=== PATIENT | male | born 1965 | race Caucasian/White ===

== ENCOUNTER → 2018-09-02 | Outpatient (CLI) | payer BC ==
--- NOTE | 2018-09-02 15:07 | US ---
EXAMINATION TYPE: US kidneys/renal and bladder DATE OF EXAM: 09/02/2018 COMPARISON: CT, US, MRI CLINICAL HISTORY: R35.0 Frequency of micturition. Pt states urinary frequency EXAM MEASUREMENTS: Right Kidney: 14.1 x 5.8 x 5.7 cm Left Kidney: 13.0 x 6.5 x 5.1 cm Right Kidney: Double collecting system Left Kidney: Cyst upper pole= 7.9 x 6.8 x 7.6 cm Bladder: wnl Bilateral Jets seen: No There is no evidence for hydronephrosis at this point in time. No nephrolithiasis is seen. No solid masses are identified. The urinary bladder is anechoic. Bilateral ureteral jets are seen. IMPRESSION: 1. Large simple cyst upper pole left kidney.
== END | disposition home or self-care (01) ==
LOC: RADUSWWP 14:17
PROVIDERS: ATTEND Family Medicine
DX: N28.1 Cyst of kidney, acquired (principal)
CPT/HCPCS: 76770

== ENCOUNTER 2019-05-23 10:04 | Day surgery (SDC) | payer BC, OTHER ==
[2019-05-22 09:28] VITALS: BMI 32.5
[~2019-05-23 10:04] MED LIST: LACTATED RINGERS 1,000 ML IV SCH; LIDOCAINE 1% 20 ML VIAL (10MG/ML) FOR IV START INTRADERMA PRN
[2019-05-23 10:23] VITALS: TEMP 97
[2019-05-23] MEDS ORDERED: PROPOFOL 10 MG/ML 20 ML VIAL IV ONE (10:31)
--- NOTE | 2019-05-23 10:53 | P.PCN ---
Date of Procedure: 05/23/19 Procedure(s) Performed: BRIEF HISTORY: Patient is a 54-year-old pleasant male scheduled for an elective colonoscopy as a part of screening for colorectal neoplasia. PROCEDURE PERFORMED: Colonoscopy. PREOPERATIVE DIAGNOSIS: Screening for colon cancer. IV sedation per Anesthesia. PROCEDURE: After informed consent was obtained, the patient, was brought into the endoscopy unit. IV sedation was administered by Anesthesia under continuous monitoring. Digital rectal examination was normal. Initially the Olympus CF-160 flexible video colonoscope was then inserted in the rectum, gradually advanced into the cecum without any difficulty. Careful examination was performed as the scope was gradually being withdrawn. Ileocecal valve and the appendiceal orifice were visualized and appeared normal. Prep was fair. Mucosa of the cecum, ascending colon, transverse colon, descending colon, sigmoid colon, and rectum appeared normal. In the mid rectum there was a 3 mm sessile polyp that was removed by cold biopsy. Retroflexion was performed in the rectum and no lesions were seen. The patient tolerated the procedure well. IMPRESSION: 3 mm sessile rectal polyp status post removal by cold biopsy Rest of the colon appeared normal RECOMMENDATIONS: Findings of this examination were discussed with the patient as well as his family. He was advised to follow with the biopsy results. If the biopsy shows an adenoma, he can have a repeat colonoscopy in 5 years.
[2019-05-23 11:11] VITALS: BP 139/81; PULSE 64; RESP 18
== END 2019-05-23 11:32 | disposition home or self-care (01) ==
LOC: ORWHC2ENDO 10:04
PROVIDERS: ATTEND Internal Medicine Gastroenterology
DX: Z12.11 Encounter for screening for malignant neoplasm of colon (principal); K62.1 Rectal polyp; Z79.82 Long term (current) use of aspirin; Z79.1 Long term (current) use of non-steroidal anti-inflammatories (NSAID)
CPT/HCPCS: 45380; 88305; J2704

== ENCOUNTER → 2019-06-26 | Outpatient (CLI) | payer BC, OTHER ==
--- NOTE | 2019-06-26 23:50 | CONS ---
CONSULTATION DATE OF SERVICE: 06/26/2019 This patient is a 54-year-old gentleman who has been evaluated in the sleep center for possible obstructive sleep apnea-hypopnea syndrome. HISTORY OF PRESENT ILLNESS/SLEEP-WAKE EVALUATION: Patient's usual sleep schedule is from around 10 or 11 p.m. until 6 or 6:20 a.m. No problems with falling asleep. No TV in bedroom. The patient usually sleeps in different positions with loud snoring and witnessed episodes by his of stopped breathing during sleep. He wakes up from sleep up to 4 times with nocturia and dry mouth. No history of hypnagogic hallucinations, sleep paralysis or cataplexy. In the morning the patient wakes up tired, has difficulties paying attention, falling asleep during the day, has problems with concentration, depression, sexual dysfunction. [place] Sleepiness Scale is significantly increased at 18. The patient takes a nap between 2 and 5 p.m. and usually feels better after taking a nap. He drinks about 3 caffeinated beverages during the day. PAST MEDICAL HISTORY: Positive for nocturia. PAST SURGICAL HISTORY: Exploratory surgery in right side of the belly for some growth in 2018. MEDICATIONS: 1. Tamsulosin. 2. Baby aspirin. SOCIAL HISTORY: Positive for smoking for a very short period of time for about 2 years; quit about 35 years ago. Alcohol consumption occasional. FAMILY HISTORY: Arthritis. Cancer; patient does not know location. REVIEW OF SYSTEMS: Awakenings from sleep, sleepiness during the day. PHYSICAL EXAMINATION: GENERAL: A pleasant 54-year-old gentleman without distress. VITAL SIGNS: BP 154/81, HR 92, RR 16, height 6 feet 2-1/2 inches, weight 280 pounds, body mass index 35.4, temperature 97.9, oxygen saturation at room air 95%. HEENT: PERRLA, EOMI. Evaluation of oropharynx showed tongue protrudes midline. Low position of soft palate. Mallampati IV. Some restriction of nasal breathing. NECK: Supple. No JVD. Thyroid is not palpable. Wide neck; 18-3/4 inches in circumference. LUNGS: Clear to percussion and to auscultation. Good air exchange. No wheezing or rhonchi. HEART: S1, S2 regular. No murmurs, gallops or rubs. ABDOMEN: Soft and nontender. Bowel sounds are present. No organomegaly. EXTREMITIES: Up to 1+ ankle edema. RADIAL SAW OPERATOR: Awake, alert, and oriented X3. Cranial nerves 2 to 7 intact. There is no fasciculation or atrophy. noted. No focal deficits observed. IMPRESSION: 1. Snoring, witnessed episodes by his of stopped breathing during sleep, awakenings from sleep multiple times with nocturia, extremely low position of soft palate, restriction of nasal breathing, wide neck, excessive sleepiness; obstructive sleep apnea-hypopnea syndrome. 2. Significant excessive daytime sleepiness. [place] Sleepiness Scale increased at 18, dictating necessity to include hypersomnia in differential diagnosis. 3. Obesity; body mass index 35.4. 4. Hypertension in the office. 5. Status post right side of the belly exploratory surgery for some growth. PLAN: 1. Polysomnography for evaluation of patient's breathing during sleep. 2. CPAP/BiPAP titration if sleep study confirms obstructive sleep apnea-hypopnea syndrome. 3. Preferable position during sleep on the side. 4. No driving if patient feels any sleepiness. 5. I will see patient for follow up visit to explain results of testing and following plan. Thank you very much for referring this patient for consultation. Sincerely, Tobias Avendano MD, PhD, FAASM Diplomat of [employer] [employer] [employer] Insulation Cupola Operator of [facility] [place] MMODL / IJN: [id number] /
== END | disposition home or self-care (01) ==
LOC: SLEEP 15:55
PROVIDERS: ATTEND Internal Medicine
DX: G47.33 Obstructive sleep apnea (adult) (pediatric) (principal); E66.9 Obesity, unspecified; I10 Essential (primary) hypertension; Z68.35 Body mass index [BMI] 35.0-35.9, adult; Z87.891 Personal history of nicotine dependence; Z98.890 Other specified postprocedural states; Z79.82 Long term (current) use of aspirin; Z79.899 Other long term (current) drug therapy
CPT/HCPCS: 99211

== ENCOUNTER → 2019-12-25 | Outpatient (CLI) | payer SELFPAY ==
--- NOTE | 2019-12-25 13:00 | SFUN ---
SLEEP CENTER FOLLOW UP NOTE DATE OF SERVICE: 12/25/2019 A 54-year-old gentleman has been followed in Sleep Center for treatment of obstructive sleep apnea-hypopnea syndrome. Today is his first visit after patient received CPAP unit and started to use it. The patient is able to use CPAP equipment every night for the whole night. He sleeps better with the machine. He feels better during the day. No snoring with the machine. [place] Sleepiness Scale today is 9. I checked CPAP unit. CPAP pressure is 9 cm of water. Usage is 29 out of 30 nights for more than 4 hours with average usage 6.3 hours per night. Leak is 26 L/minute which is borderline. Apnea-hypopnea index only 1.0, which is absolutely perfect. Leak could be related to opening mouth. MEDICATIONS: Tamsulosin, aspirin. PHYSICAL EXAMINATION: During physical exam, patient in no distress. VITAL SIGNS: BP 161/92, HR 66, RR 16, weight 285.8, temperature 97.6, oxygen saturation on room air 96%. HEENT: PERRLA, EOMI. Oropharynx extremely low position of soft palate. Mallampati 4. NECK: Supple, no JVD. Thyroid is not palpable. LUNGS: Clear to percussion and to auscultation. Good air exchange. No wheezing or rhonchi. HEART: S1, S2 regular. No murmurs, gallops, or rubs. ABDOMEN: Obese. EXTREMITIES: No clubbing or cyanosis. FARM TECHNICIAN: Awake, alert, and oriented X3. Cranial nerves 2 to 7 intact. There is no fasciculation or atrophy. noted. No focal deficits observed. IMPRESSION: 1. Severe obstructive sleep apnea-hypopnea syndrome; apnea-hypopnea index 56.3 with oxygen desaturation to 70%. The patient demonstrated practically 100% compliance with treatment benefitting from treatment, normal respiration with CPAP. 2. Obesity. 3. Hypertension in the office already second time. 4. Mild periodic limb movements during titration. 5. Status post exploratory surgery of the right side of the belly for the growth. PLAN: 1. Patient will continue to use CPAP equipment every night for the whole night. 2. Watching and losing weight. 3. Sleep hygiene with regular time in bed for 7-1/2 to 8 hours. 4. No driving if feeling any sleepiness. 5. Prescription for chin strap to prevent opening mouth. Thank you very much for allowing me to participate in management of your patient. Sincerely, Tobias Avendano MD, PhD, FAASM Diplomat of [place] [employer] Rubbing Bed Operator of [facility] [place] HUGO / JOSE R: [id number] /
== END | disposition home or self-care (01) ==
LOC: SLEEP 11:17
PROVIDERS: ATTEND Internal Medicine
DX: G47.33 Obstructive sleep apnea (adult) (pediatric) (principal); E66.9 Obesity, unspecified; I10 Essential (primary) hypertension; G47.61 Periodic limb movement disorder; Z98.890 Other specified postprocedural states; Z99.89 Dependence on other enabling machines and devices; Z79.899 Other long term (current) drug therapy; Z79.82 Long term (current) use of aspirin

== ENCOUNTER → 2021-03-02 | Outpatient (CLI) | payer OTHER ==
--- NOTE | 2021-03-02 19:35 | SFUN ---
SLEEP CENTER FOLLOW UP NOTE DATE OF SERVICE: 03/02/2021 This is a 55-year-old gentleman who has been followed in the sleep enter for treatment of obstructive sleep apnea-hypopnea syndrome. The patient continues to use his CPAP equipment every night for the whole night. He likes his mask. He is using a nasal pillow AirFit P10. [place] Sleepiness Scale has increased to 13. I checked his CPAP unit. CPAP pressure is 10 cm of water. Usage is 29/30 nights and 22/30 nights for more than 4 hours, average usage 4.9 hours per night. Leak is 28 L/minute. Apnea-hypopnea index was only 1.0, which is absolutely perfect. MEDICATIONS: Motrin, aspirin 81 mg once a day. PHYSICAL EXAMINATION: GENERAL: A pleasant gentleman without distress. VITAL SIGNS: BP 161/90, HR 88, RR 15. Height 6 feet 2-1/2 inches, weight 295.8 pounds, temperature 97.9, oxygen saturation at room air 98%. Body mass index 37.4. HEENT: PERRLA, EOMI. Evaluation of oropharynx showed tongue protrudes midline. Extremely low position of soft palate. Mallampati IV. NECK: Supple. No JVD. Thyroid is not palpable. LUNGS: Clear to percussion and to auscultation. Good air exchange. No wheezing or rhonchi. HEART: S1, S2 regular. No murmurs, gallops or rubs. ABDOMEN: Soft and nontender. Bowel sounds are present. No organomegaly appreciated. EXTREMITIES: No clubbing or cyanosis. HORTICULTURE SUPERVISOR: Awake, alert, and oriented X3. Cranial nerves 2 to 7 intact. There is no fasciculation or atrophy. noted. No focal deficits observed. IMPRESSION: 1. Obstructive sleep apnea-hypopnea syndrome. Patient demonstrated great compliance with treatment, benefitting from treatment. 2. Patient still has some episodes of sleepiness. [place] Sleepiness Scale is 13. Originally during the first visit before treatment of sleep apnea it was 18. 3. Obesity. 4. Hypertension in the office. 5. Status post right side of the belly exploration surgery for growth. PLAN: 1. Patient will continue to use PAP equipment every night for the whole night. 2. Sleep hygiene with regular time in bed for at least 7-1/2 to 8 hours. 3. Precautions related to driving. No driving if feeling sleepiness. 4. I will maintain all necessary prescription for PAP supplies including mask, tube, filters. 5. Watching weight. 6. Follow-up visit in 6 months or earlier if patient has any problems. 7. I had an extensive discussion with the patient about the necessity of monitoring blood pressure and follow with a primary care physician. 8. Low-sodium diet. 9. I wrote a prescription today for his supplies, including nasal pillow mask, tube, filters. Sincerely, Tobias Avendano MD, PhD, FAASM Diplomat of [place] [employer] [place] [employer] Special Agent of [facility] [place] MMODL / IJN: [id number] /
== END ==
LOC: SLEEP 14:28
PROVIDERS: ATTEND Internal Medicine
DX: G47.33 Obstructive sleep apnea (adult) (pediatric) (principal); E66.9 Obesity, unspecified; I10 Essential (primary) hypertension; Z98.890 Other specified postprocedural states

== ENCOUNTER → 2021-04-21 | Outpatient (CLI) | payer OTHER ==
--- NOTE | 2021-04-21 12:34 | ECHOF ---
Referral Reason:R06.02 Shortness of breath MEASUREMENTS -------- HEIGHT: 160.0 cm WEIGHT: 127.0 kg BP: RVIDd: 2.9 cm (< 3.3) IVSd: 1.3 cm (0.6 - 1.1) LVIDd: 4.3 cm (3.9 - 5.3) LVPWd: 1.2 cm (0.6 - 1.1) IVSs: 2.1 cm LVIDs: 1.9 cm LVPWs: 2.0 cm LAESV Index (A-L): 17.67 ml/m Ao Diam: 3.5 cm (2.0 - 3.7) AV Cusp: 2.4 cm (1.5 - 2.6) LA Diam: 4.1 cm (2.7 - 3.8) MV EXCURSION: 16.541 mm (> 18.000) MV EF SLOPE: 123 mm/s (70 - 150) EPSS: 0.6 cm MV E Israel: 0.57 m/s MV DecT: 192 ms MV A Israel: 0.62 m/s MV E/A Ratio: 0.92 RAP: 5.00 mmHg RVSP: 27.11 mmHg FINDINGS -------- This was a technically adequate study. The left ventricular size is normal. There is mild concentric left ventricular hypertrophy. Overa ll left ventricular systolic function is normal with, an EF between 55 - 60 %. The diastolic fillin g pattern is normal for the age of the patient 8.78. The right ventricle is normal in size. The left atrial size is normal. Normal LA size by volume 22+/-6 ml/m2. The right atrial size is normal. The aortic valve is trileaflet and appears structurally normal. The mitral valve is normal. Mild mitral regurgitation is present. The tricuspid valve appears structurally normal. Mild tricuspid regurgitation present. Right vent ricular systolic pressure is normal at < 35 mmHg. There is no pulmonic regurgitation present. The aortic root size is normal. IVC Not well visulized. There is no pericardial effusion. CONCLUSIONS -------- 1. The left ventricular size is normal. 2. There is mild concentric left ventricular hypertrophy. 3. Overall left ventricular systolic function is normal with, an EF between 55 - 60 %. 4. The diastolic filling pattern is normal for the age of the patient 8.78 5. Mild mitral regurgitation is present. 6. Mild tricuspid regurgitation present. 7. There is no pericardial effusion. ANDROID DEVELOPER: Pinky Braden RDCS
== END | disposition home or self-care (01) ==
LOC: RADECHMAIN 10:44
PROVIDERS: ATTEND Family Medicine
DX: I08.1 Rheumatic disorders of both mitral and tricuspid valves (principal)
CPT/HCPCS: 93306

== ENCOUNTER → 2023-03-23 | Outpatient (CLI) | payer OTHER ==
--- NOTE | 2023-03-27 05:42 | CT ---
EXAMINATION TYPE: CT abdomen wo/w con DATE OF EXAM: 03/23/2023 COMPARISON: 01/17/2016 HISTORY: 57-year-old male N2 8.1, Renal mass TECHNIQUE: Contiguous axial scanning of the abdomen before and after administration of 100 ml Isovue 300 IV contrast. Delayed images through the kidneys and coronal/sagittal reconstructions performed. CT DLP: 2390.50 mGycm Automated exposure control for dose reduction was used. FINDINGS: Heart upper limits of normal in size without pericardial effusion. Some dependent atelectas is in the lower lungs. No pleural effusion. Hepatomegaly at 21.8 cm. No focal liver lesion or biliary ductal dilatation. Portal venous system is patent. Gallbladder and adrenal glands within normal limits. Spleen mildly enlarged at 14.1 cm. There is a 1.0 cm hypodense lesion anterior tail of the pancreas, axial image 31, not clearly seen pr eviously. This should be reassessed at a 3 month follow-up CT. Symmetric uptake and excretion of contrast from both kidneys. There is a 2.4 cm parapelvic cyst mid t o lower pole right kidney. There is also a 2.9 cm cyst anterior upper midpole left kidney which has c onsiderably decreased in size compared to 6.3 cm back in 2016. No dilated small bowel, free fluid, or free air. No mesenteric or retroperitoneal lymphadenopathy. Small fatty umbilical hernia. Mild overall stool burden. No pericolonic inflammatory change. [facility] in the lower thoracic spine. Moderate to advanced degenerative disc disease throughout the lumba r spine. Pelvis not imaged. IMPRESSION: 1. BENIGN PARAPELVIC CYST WITHIN THE RIGHT KIDNEY MEASURING 2.4 CM AND A BENIGN 2.9 CM CYST ANTERIOR LEFT KIDNEY, CONSIDERABLY DECREASED IN SIZE COMPARED TO 6.3 CM BACK IN 2016. 2. A NEW LOW-DENSITY LESION WITHIN THE ANTERIOR TAIL OF THE PANCREAS MEASURING 1.0 CM. NOT SEEN IN 20 16. RECOMMEND 3 MONTH FOLLOW-UP CONTRAST ENHANCED CT TO EXCLUDE AN EARLY PANCREATIC CARCINOMA. IF STA BLE AT THAT TIME, ADDITIONAL SURVEILLANCE FOLLOW-UP MAY BE INDICATED. IN THE MEANTIME, CORRELATE WITH TUMOR MARKERS. 3. HEPATOSPLENOMEGALY (LIVER 21.8 CM AND SPLEEN 14.1 CM). CLINICALLY CORRELATE.
== END | disposition home or self-care (01) ==
LOC: RADCTMAIN 12:06
PROVIDERS: ATTEND Emergency Medicine Emergency Medical Services
DX: N28.1 Cyst of kidney, acquired (principal); K86.89 Other specified diseases of pancreas; R16.2 Hepatomegaly with splenomegaly, not elsewhere classified
CPT/HCPCS: 74170; Q9967

== ENCOUNTER → 2023-04-02 | Outpatient (CLI) | payer OTHER ==
[2023-04-02 10:07] VITALS: BP 118/77; PULSE 61; RESP 18; TEMP 97.6
--- NOTE | 2023-04-05 07:41 | P.PAINPG ---
PQRS Measure Charge Sheet Comment: HISTORY OF PRESENT ILLNESS: 57 yr old as a referral from [facility] presents today w severe and chronic LBP secondary to DDD, spondylosis and facet arthropathy without myelopathy for evaluation. Pt states pain level is provoked at 8 /10 in intensity, constant, localized in the lower lumbar spine, burning, sharp in character w shooting pain towards the BLEs. Pain is provoked by walking and over activity x 30 min. Pain is alleviated by PT x 5 wks in Nov 2022, chiropractic treatments semi monthly x 1 1/2 mo, ice, medications (Tramadol, Ibu), topical, repositioning, sitting and rest. PMH: No Reported History PSH: Colonoscopy (2019), Laparoscopic Hernia Repair (2016), Bunionectomy, Finger Surgery SH: Negative x3 FH: Non contributory All: NKDA Meds: See list REVIEW OF ORGAN SYSTEMS: CONSTITUTIONAL: No fevers or chills. No recent weight loss. NEUROLOGICAL: + numbness and tingling along the distal extremities. No seizure disorders or headaches. MUSCULOSKELETAL: + pain PSYCHIATRIC: Denies current depression or suicidal thoughts. Physical Examinations : Constitutional : Cooperative , not in acute distress . Neurologic : Cranial nerve II to XII intact. No focal neurological deficits. Psychiatric : alert & oriented x 3. Matching mood & appropriate affect. Judgment & insight intact. Musculoskeletal : Cervical Spine Motor strength in the deltoid and biceps: Normal right side. Normal Left side Motor strength biceps and the wrist extensors: Normal right side . Normal left side Motor strength in the triceps muscle: Normal right side. Normal left side Deep tendon reflexes: Normal at the biceps. Normal at Brachioradialis. Normal at triceps Vertebral body tenderness to deep palpation over Cervical facet loading test: positive bilaterally Spurling test: positive bilaterally Neck distraction test: positive merlene aterally Florinda sign: positive bilaterally Lumbar spine Motor strength lower extremities ,thigh and legs 5/5 Right side , 5/5 Left side Deep tendon reflexes : Normal Knee Jerk. Normal Ankle Jerk Vertebral body tenderness over Maciel Test positive Lumbar facet Loading Test: positive Right / positive Left Range of motion of the lumbar spine Flexion 30 degrees, extension 10 degrees Straight Leg Raise test: Left/ Right positive at degree Marcelina test: positive right / positive left. Severe tenderness over the Sacroiliac joint on the Right / Left sides Gaenslen test: positive bilaterally Seated flexion test: positive bilaterally. Sacral spine : Severe tenderness over the Sacroiliac joint: right side / left side Range of motion: Flexion of the lumbar spine <60 degrees Range of motion: Extension of the lumbar spine <20 degrees Gaenslen's Test positive Tejas's Test positive Marcelina test: positive right side / left side Thigh Thrust Test Sacral Thrust Test Imaging: None on file Assessment/ Plan : Lumbar DDD Need imaging of which pt states MRIs have been complete while a [facility]. Request sent. May return to clinic within 2-4 wks for a re evaluation. I have spent greater than 30 minutes on patient care today. Dr Calderon was available by phone for the evaluation of this patient. The time was used to review the medical records including relevant urine studies and Prescription history (MAPs), review of the available imaging, evaluation and examination of the patient, coordination of care with the medical staff and if applicable referring physicians, as well as creation of the medical record PQRS Narrative: Smoking Status Never smoker Home Medications: Ambulatory Orders Aspirin 81 mg PO DAILY 01/17/16 Multivitamin [Men's Multi-Vitamin] 1 tab PO DAILY 01/17/16 Ibuprofen [Motrin] 800 mg PO DAILY PRN 02/04/16 Tamsulosin [Flomax] 0.4 mg PO DAILY 05/23/19 Controlled Substance Measures - Controlled Substance Measures Is patient prescribed a controlled substance at discharge?: No
== END ==
LOC: PNWHC3 08:48
PROVIDERS: ATTEND Specialist
DX: M51.36 Other intervertebral disc degeneration, lumbar region (principal)
CPT/HCPCS: 99211

== ENCOUNTER → 2023-04-23 | Outpatient (CLI) | payer OTHER ==
[2023-04-23 10:07] VITALS: BP 118/73; PULSE 56; RESP 18; TEMP 98.3
--- NOTE | 2023-04-23 14:20 | P.PAINPG ---
PQRS Measure Charge Sheet Comment: A 58 yr old male with a history of severe and chronic LBP secondary to lumbar DDD and spondylosis with facet arthropathy without myelopathy presents today for LBP. Pt states pain level is provoked at 8 /10 in intensity, constant, localized in the lower lumbar spine, burning, sharp in character w shooting pain towards the BL hips. Pain is provoked by walking and over activity x 30 min. Pain is alleviated by PT x 5 wks in Nov 2022, chiropractic treatments semi monthly x 1 1/2 mo, ice, medications (Tramadol, Ibu), topical, repositioning and sitting all with minimal relief. Patient is currently on Ibu, Tyl Patient denies any side effects of the medication(s), denies excessive drowsiness or sleepiness, denies suicidal ideation and reports that the current pain medication is helping to control the pain and improve activities of daily living. Patient denies any motor or sensory deficits. Patient denies any fever or night sweats, denies any change in the bowel movements or urination. Physical Examination: -Constitutional: Cooperative. Not in acute distress . - Neurologic: Cranial nerve II to XII intact. No focal neurological deficits. - Psychatric: Alert & oriented x 3. Matching mood & appropriate affect. Judgment and insight intact. - Musculoskeletal: Cervical spine: Muscle bulk/ tone/ strength in the bilateral upper extremities normal Vertebral body tenderness to palpation over Spurling test positive Distraction test positive Facet loading test positive TTP Thoracic spine Muscle bulk / tone/ strength in the bilateral paraspinal muscles normal Vertebral body tender to palpation over Facet loading test positive TTP Lumbar spine: Motor bulk/ tone/ strength lower extremities , thigh and legs : 5/5 Deep tendon reflexes : Normal Knee Jerk. Normal Ankle Jerk . Vertebral body tenderness to palpation over L2 Maciel Test positive Lumbar Facet Loading Test positive Straight Leg Raise: positive at 30 degrees right side/ left side Gaenslen's Test positive Sacral spine : Severe tenderness over the Sacroiliac joint: right side / left side Range of motion: Flexion of the lumbar spine <60 degrees Range of motion: Extension of the lumbar spine <20 degrees Gaenslen's Test positive right side / left side Marcelina test: positive right side / left side Thigh Thrust Test positive right side / left side Sacral Thrust Test positive right side / left side Imaging: MRI noncontrast of BL hips from 06/28/22 reviewed MRI noncontrast of lumbar spine from 06/28/22 reviewed Assessment and plan: Chronic LBP secondary to lumbar DDD, spondylosis with facet arthropathy without myelopathy Recommendation of REBEL L1-L2. May need a series fo injections for optimal pain relief. Risks, benefits of procedure discussed and pt verbalized understanding. Admits to anticoagulant use or medical history of diabetes. Protocol for discontinuation/ continuation of medications brianne procedure discussed. Minimal anesthesia provided, if clinically indicated, consisting of Versed and Fentanyl. All questions answered. I have spent less than 30 minutes on patient care today. Dr Calderon was available by phone for the evaluation of this patient. The time was used to review the medical records including relevant urine studies and Prescription history (MAPs), review of the available imaging, evaluation and examination of the patient, coordination of care with the medical staff and if applicable referring physicians, as well as creation of the medical record PQRS Narrative: Smoking Status Never smoker Hx Alcohol Use (MH) No Home Medications: Ambulatory Orders Aspirin 81 mg PO DAILY 01/17/16 Multivitamin [Men's Multi-Vitamin] 1 tab PO DAILY 01/17/16 Ibuprofen [Motrin] 800 mg PO DAILY PRN 02/04/16 Tamsulosin [Flomax] 0.4 mg PO DAILY 05/23/19 Controlled Substance Measures - Controlled Substance Measures Is patient prescribed a controlled substance at discharge?: No
== END ==
LOC: PNWHC3 08:16
PROVIDERS: ATTEND Specialist
DX: M51.36 Other intervertebral disc degeneration, lumbar region (principal); M47.816 Spondylosis without myelopathy or radiculopathy, lumbar region; G89.29 Other chronic pain; Z79.82 Long term (current) use of aspirin
CPT/HCPCS: 99211

== ENCOUNTER 2023-05-29 08:17 | Day surgery (SDC) | payer OTHER ==
[2023-05-10 14:51] VITALS: BMI 32.1
[~2023-05-29 08:17] MED LIST changes: -LIDOCAINE 1% 20 ML VIAL (10MG/ML) FOR IV START INTRADERMA PRN
[2023-05-29 08:34] VITALS: TEMP 96.4
[2023-05-29] MEDS ORDERED: methylPREDNISolone ACETATE 80 MG/ML 1 ML VIAL ONE (08:48)
[2023-05-29] MEDS ORDERED: IOPAMIDOL M200 10 ML VIAL ONE (08:48)
[2023-05-29 09:02] VITALS: PULSE 55; RESP 18
[2023-05-29 09:15] VITALS: BP 143/87
--- NOTE | 2023-05-29 09:22 | P.PCN ---
Date of Procedure: 05/29/23 Procedure(s) Performed: PREOPERATIVE DIAGNOSIS: 1- Lumbar Degenerative Disc Diseases 2-Lumbar spondylosis with Facet arthropathy without myelopathy. POSTOPERATIVE DIAGNOSIS: 1-lumbar degenerative disc disease. 2-lumbar spondylosis with facet arthropathy without myelopathy. PROCEDURE 1. Lumbar epidural steroid injection under fluoroscopic guidance at the L1-2 level. (Fluoroscopy imaging was available in radiology department) 2. Lumbar epidurogram. ANESTHESIA: Lidocaine 1% 3 and then only. EBL: Minimal PROCEDURE INDICATION: The patient with low back pain and radiculitis symptoms unresponsive to conservative treatment. Fluoroscopy was used to optimize visualization of the needle placement and to maximize safety. PROCEDURE DESCRIPTION / TECHNIQUE: The patient was seen and identified in the preoperative area. Risks, benefits, complications including but not limited to infections ,bleeding ,allergic reaction to the medications ,nerve damage and not complete pain releife , and alternatives were discussed with the patient. The patient agreed to proceed with the procedure and signed the consent, and vital signs were stable. Patient was taken to the OR and time out was completed. The patient was placed in the prone position on procedure table and a pillow was placed under the abdomen to reduce lumbar lordosis. The lumbosacral area was prepped and draped in the usual sterile fashion.ere closely monitored during the procedure. Vital signs was monitered during the entire procedure. Using anterior-posterior fluoroscopy, the L1-2 interlaminar space was identified and the skin over this site was marked and then infiltrated with 1% lidocaine subcutaneously. Subsequently, a 20-gauge Tuohy epidural needle was inserted and advanced toward the epidural space using the ``Loss of resistance technique and guided by AP and lateral fluoroscopy. The correct needle position in the epidural space was verified with the injection of 2 mL of the water soluble contrast dye Isovue 200 contrast and observing an excellent epidurogram with the epidural spread of the dye, after negative aspiration for blood and CSF and in the absence of paresthesias. Again after negative aspiration, a 6 ml mixture containing 80 mg of Depo-medrol ( Preservetive Free ), and 2 ml of preservative free Normal Saline, and 2 ml of preservative free lidocaine 1% solution was injected and a washout of epidurogram was seen. Needle was withdrawn intact, skin was cleansed, and bandages were applied. COMPLICATIONS: None DISPOSITION / PLANS: The patient was placed in a supine position and transferred to the recovery area in a stable condition for observation. There was no evidence of lower extremity motor or sensory deficit after the procedure. Patient was discharged from the recovery room after meeting discharge criteria. Home discharge instructions were given to the patient by the staff. The patient was reexamined prior to discharge. The patient will schedule a follow up in the clinic in 2-4 weeks.
--- NOTE | 2023-05-29 17:13 | FL ---
EXAMINATION TYPE: FL guided pain mgmt statistic DATE OF EXAM: 05/29/2023 FLUOROSCOPY Fluoroscopy time of 2 seconds was used during lumbar epidural steroid injection. Image/s document/s t he procedure. DOSE AREA PRODUCT (DAP) UGY*M,MGY*CM: 0.70050
== END 2023-05-29 09:18 | disposition home or self-care (01) ==
LOC: ORPAIN 08:17
PROVIDERS: ATTEND Specialist
DX: M51.16 Intervertebral disc disorders with radiculopathy, lumbar region (principal); M47.26 Other spondylosis with radiculopathy, lumbar region; Z79.82 Long term (current) use of aspirin
CPT/HCPCS: 62323; J1040; Q9966

== ENCOUNTER → 2023-06-21 | Outpatient (CLI) | payer OTHER ==
[2023-06-21 08:41] VITALS: BP 127/74; PULSE 58; RESP 15; TEMP 97.2
--- NOTE | 2023-06-21 13:09 | P.PAINPG ---
PQRS Measure Charge Sheet Comment: A 58 yr old male with a history of severe and chronic LBP secondary to lumbar DDD and spondylosis with facet arthropathy without myelopathy presents today for evaluation s/p REBEL L1-L2 #1. Pt states he experienced 75% pain relief x 2 wks s/p procedure. Pt states pain level is provoked at 7 /10 in intensity, constant, localized in the lower lumbar spine, burning, sharp in character w shooting pain towards the BL hips. Pain is provoked by walking and over activity x 30 min. Pain is alleviated by PT x 5 wks in Nov 2022, chiropractic treatments semi monthly x 3 mo which he is currently in, ice, medications (Tramadol, Ibu), topical, repositioning and sitting all with minimal relief. Oswestry axial pain score of 21. Interventional procedures include REBEL L1-L2 x1 Patient is currently on Ibu, Tyl Patient denies any side effects of the medication(s), denies excessive drowsiness or sleepiness, denies suicidal ideation and reports that the current pain medication is helping to control the pain and improve activities of daily living. Patient denies any motor or sensory deficits. Patient denies any fever or night sweats, denies any change in the bowel movements or urination. Physical Examination: -Constitutional: Cooperative. Not in acute distress . - Neurologic: Cranial nerve II to XII intact. No focal neurological deficits. - Psychatric: Alert & oriented x 3. Matching mood & appropriate affect. Judgment and insight intact. - Musculoskeletal: Cervical spine: Muscle bulk/ tone/ strength in the bilateral upper extremities normal Vertebral body tenderness to palpation over Spurling test positive Distraction test positive Facet loading test positive TTP Thoracic spine Muscle bulk / tone/ strength in the bilateral paraspinal muscles normal Vertebral body tender to palpation over Facet loading test positive TTP Lumbar spine: Motor bulk/ tone/ strength lower extremities , thigh and legs : 5/5 Deep tendon reflexes : Normal Knee Jerk. Normal Ankle Jerk . Vertebral body tenderness to palpation over L2 Maciel Test positive Lumbar Facet Loading Test positive Straight Leg Raise: positive at 30 degrees right side/ left side Gaenslen's Test positive Sacral spine : Severe tenderness over the Sacroiliac joint: right side / left side Range of motion: Flexion of the lumbar spine <60 degrees Range of motion: Extension of the lumbar spine <20 degrees Gaenslen's Test positive right side / left side Marcelina test: positive right side / left side Thigh Thrust Test positive right side / left side Sacral Thrust Test positive right side / left side Imaging: MRI noncontrast of BL hips from 06/28/22 reviewed MRI noncontrast of lumbar spine from 06/28/22 reviewed Assessment and plan: Chronic LBP secondary to lumbar DDD, spondylosis with facet arthropathy without myelopathy Recommendation of REBEL L1-L2 #2. May need a series of injections for optimal pain relief. Risks, benefits of procedure discussed and pt verbalized understanding. Admits to anticoagulant use or medical history of diabetes. Protocol for discontinuation/ continuation of medications brianne procedure dis cussed. Minimal anesthesia provided, if clinically indicated, consisting of Versed and Fentanyl. All questions answered. I have spent less than 30 minutes on patient care today. Dr Calderon was avail able by phone for the evaluation of this patient. The time was used to review the medical records including relevant urine studies and Prescription history (MAPs), review of the available imaging, evaluation and examination of the patient, coordination of care with the medical staff and if applicable referring physicians, as well as creation of the medical record PQRS Narrative: Smoking Status Never smoker Hx Alcohol Use (MH) No Home Medications: Ambulatory Orders Aspirin 81 mg PO DAILY 01/17/16 Multivitamin [Men's Multi-Vitamin] 1 tab PO DAILY 01/17/16 Ibuprofen [Motrin] 800 mg PO DAILY PRN 02/04/16 Tamsulosin [Flomax] 0.4 mg PO DIRECTED 05/23/19 Controlled Substance Measures - Controlled Substance Measures Is patient prescribed a controlled substance at discharge?: No
== END ==
LOC: PNWHC3 08:14
PROVIDERS: ATTEND Specialist
DX: M51.36 Other intervertebral disc degeneration, lumbar region (principal); M47.816 Spondylosis without myelopathy or radiculopathy, lumbar region; G89.29 Other chronic pain; Z79.82 Long term (current) use of aspirin; Z88.8 Allergy status to other drugs, medicaments and biological substances
CPT/HCPCS: 99211

== ENCOUNTER → 2023-06-28 | Outpatient (CLI) | payer OTHER ==
--- NOTE | 2023-06-28 11:36 | CT ---
EXAMINATION TYPE: CT abdomen w con CT DLP: 2.8 mGycm, Automated exposure control for dose reduction was used. DATE OF EXAM: 06/28/2023 11:10 AM COMPARISON: CT abdomen pelvis most recent from 03/23/2023 CLINICAL INDICATION:Male, 58 years old with history of R93.5 ABN FINDINGS ON DX IMAGING OF ABD REGION S, I; abnormal findings of pancreas, renal cysts TECHNIQUE: Axial CT of the abdomen and pelvis. Sagittal and coronal reformats were created on a [employer] workstation. Contrast used:100 mL of Isovue 370 with IV Contrast, (none if empty) Oral contrast used: with Oral Contrast (none if empty) FINDINGS: LOWER CHEST: Unremarkable ABDOMEN LIVER: Diffusely hypoattenuating parenchyma. GALLBLADDER AND BILE DUCTS: Unremarkable. PANCREAS: Pancreatic tail cystic lesion measuring 12 mm is unchanged from 03/23/2023. There is no inte rnal enhancement there may be a small septation series 6 image 59. SPLEEN: Unremarkable. ADRENAL GLANDS: Unremarkable. KIDNEYS AND URETERS: No evidence of hydronephrosis or renal calculus. The ureters are unremarkable. B ilateral peripelvic renal cysts. Delayed imaging demonstrates no evidence for obstruction or contrast within the cyst. Postcontrast imaging consistent suspicious mass. PELVIS BLADDER: Unremarkable REPRODUCTIVE: Unremarkable. ABDOMEN & PELVIS STOMACH AND BOWEL: No evidence of bowel obstruction. PERITONEUM/RETROPERITONEUM: No evidence of pneumoperitoneum or free fluid. VASCULATURE: No evidence of aortic aneurysm. MUSCULOSKELETAL: No acute osseous abnormalities LYMPH NODES: No gross evidence for lymphadenopathy. SOFT TISSUE/ABDOMINAL WALL: Unremarkable IMPRESSION: 1. Bilateral peripelvic in renal cortical cysts.. No suspicious mass. No obstructive uropathy or tamiko al calculi. 2. 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 Attention on follow-up MRI with MRCP pancreatic mass protocol in 1 year. To ensure stability. 3. Hepatic steatosis.
== END | disposition home or self-care (01) ==
LOC: RADCTMAIN 09:56
PROVIDERS: ATTEND Social Worker Clinical
DX: K76.0 Fatty (change of) liver, not elsewhere classified (principal); N28.1 Cyst of kidney, acquired; K86.89 Other specified diseases of pancreas; R93.5 Abnormal findings on diagnostic imaging of other abdominal regions, including retroperitoneum
CPT/HCPCS: 74160; Q9967

== ENCOUNTER 2023-07-12 06:56 | Day surgery (SDC) | payer OTHER ==
[2023-07-12] MEDS ORDERED: LACTATED RINGERS 1,000 ML IV SCH (07:16)
[2023-07-12] MEDS ORDERED: methylPREDNISolone ACETATE 80 MG/ML 1 ML VIAL ONE (07:58)
[2023-07-12] MEDS ORDERED: IOPAMIDOL M200 10 ML VIAL ONE (07:58)
--- NOTE | 2023-07-12 08:04 | P.PCN ---
Date of Procedure: 07/12/23 Procedure(s) Performed: PREOPERATIVE DIAGNOSIS: 1- Lumbar Degenerative Disc Diseases 2-Lumbar spondylosis with Facet arthropathy without myelopathy. POSTOPERATIVE DIAGNOSIS: 1-lumbar degenerative disc disease. 2-lumbar spondylosis with facet arthropathy without myelopathy. PROCEDURE 1. Lumbar epidural steroid injection under fluoroscopic guidance at the L1-2 level. (Fluoroscopy imaging was available in radiology department) 2. Lumbar epidurogram. ANESTHESIA: Lidocaine 1% 3 and then only. EBL: Minimal PROCEDURE INDICATION: The patient with low back pain and radiculitis symptoms unresponsive to conservative treatment. Fluoroscopy was used to optimize visualization of the needle placement and to maximize safety. PROCEDURE DESCRIPTION / TECHNIQUE: The patient was seen and identified in the preoperative area. Risks, benefits, complications including but not limited to infections ,bleeding ,allergic reaction to the medications ,nerve damage and not complete pain releife , and alternatives were discussed with the patient. The patient agreed to proceed with the procedure and signed the consent, and vital signs were stable. Patient was taken to the OR and time out was completed. The patient was placed in the prone position on procedure table and a pillow was placed under the abdomen to reduce lumbar lordosis. The lumbosacral area was prepped and draped in the usual sterile fashion.ere closely monitored during the procedure. Vital signs was monitered during the entire procedure. Using anterior-posterior fluoroscopy, the L1-2 interlaminar space was identified and the skin over this site was marked and then infiltrated with 1% lidocaine subcutaneously. Subsequently, a 20-gauge Tuohy epidural needle was inserted and advanced toward the epidural space using the ``Loss of resistance technique and guided by AP and lateral fluoroscopy. The correct needle position in the epidural space was verified with the injection of 2 mL of the water soluble contrast dye Isovue 200 contrast and observing an excellent epidurogram with the epidural spread of the dye, after negative aspiration for blood and CSF and in the absence of paresthesias. Again after negative aspiration, a 6 ml mixture containing 80 mg of Depo-medrol ( Preservetive Free ), and 2 ml of preservative free Normal Saline, and 2 ml of preservative free lidocaine 1% solution was injected and a washout of epidurogram was seen. Needle was withdrawn intact, skin was cleansed, and bandages were applied. COMPLICATIONS: None DISPOSITION / PLANS: The patient was placed in a supine position and transferred to the recovery area in a stable condition for observation. There was no evidence of lower extremity motor or sensory deficit after the procedure. Patient was discharged from the recovery room after meeting discharge criteria. Home discharge instructions were given to the patient by the staff. The patient was reexamined prior to discharge. The patient will schedule a follow up in the clinic in 2-4 weeks.
--- NOTE | 2023-07-12 11:12 | FL ---
Intraoperative/procedural fluoroscopic services were provided. Total fluoroscopy time is 2.3 seconds with a total of 1 submitted images to PACS. Please see the operative/procedural note for further deta ils. DAP: 0.24583 mGym2
[2023-07-12 15:56] VITALS: BP 125/67; PULSE 65; RESP 16; TEMP 96.9
== END 2023-07-12 08:31 | disposition home or self-care (01) ==
LOC: ORPAIN 06:56
PROVIDERS: ATTEND Specialist
DX: M51.16 Intervertebral disc disorders with radiculopathy, lumbar region (principal); M47.26 Other spondylosis with radiculopathy, lumbar region; Z88.8 Allergy status to other drugs, medicaments and biological substances; Z79.82 Long term (current) use of aspirin
CPT/HCPCS: 62323; J1040; Q9966

== ENCOUNTER → 2023-08-23 | Outpatient (CLI) | payer OTHER ==
[2023-08-23 08:47] VITALS: BP 122/73; PULSE 48; RESP 16; TEMP 98
--- NOTE | 2023-08-23 12:20 | P.PAINPG ---
PQRS Measure Charge Sheet Comment: A 58 yr old male with a history of severe and chronic LBP secondary to lumbar DDD and spondylosis with facet arthropathy without myelopathy presents today for evaluation s/p REBEL L1-L2 #2. Pt states he experienced 80% pain relief x 1 wks s/p procedure. Pt states pain level is provoked at 9 /10 in intensity, constant, localized in the lower lumbar spine, burning, sharp in character w shooting pain towards the R hip. Pain is provoked by walking/ standing for periods of 30 min or more. Pain is alleviated by PT x 5 wks in Nov 2022, chiropractic treatments semi monthly x 4 mo w last visit 1 m ago, ice, medications, topical, repositioning and sitting all with minimal relief. Oswestry axial pain score of 22. Interventional procedures include REBEL L1-L2 x2 Patient is currently on Ibu, Tyl, Tramadol Patient denies any side effects of the medication(s), denies excessive drowsiness or sleepiness, denies suicidal ideation and reports that the current pain medication is helping to control the pain and improve activities of daily living. Patient denies any motor or sensory deficits. Patient denies any fever or night sweats, denies any change in the bowel movements or urination. Physical Examination: -Constitutional: Cooperative. Not in acute distress . - Neurologic: Cranial nerve II to XII intact. No focal neurological deficits. - Psychatric: Alert & oriented x 3. Matching mood & appropriate affect. Judgment and insight intact. - Musculoskeletal: Cervical spine: Muscle bulk/ tone/ strength in the bilateral upper extremities normal Vertebral body tenderness to palpation over Spurling test positive Distraction test positive Facet loading test positive TTP Thoracic spine Muscle bulk / tone/ strength in the bilateral paraspinal muscles normal Vertebral body tender to palpation over Facet loading test positive TTP Lumbar spine: Motor bulk/ tone/ strength lower extremities , thigh and legs : 5/5 Deep tendon reflexes : Normal Knee Jerk. Normal Ankle Jerk . Vertebral body tenderness to palpation over L2 Maciel Test positive Lumbar Facet Loading Test positive Straight Leg Raise: positive at 30 degrees right side/ left side Gaenslen's Test positive Sacral spine : Severe tenderness over the Sacroiliac joint: right side / left side Range of motion: Flexion of the lumbar spine <60 degrees Range of motion: Extension of the lumbar spine <20 degrees Gaenslen's Test positive right side > left side Marcelina test: positive right side > left side Thigh Thrust Test positive right side / left side Sacral Thrust Test positive right side > left side Imaging: MRI noncontrast of BL hips from 06/28/22 reviewed MRI noncontrast of lumbar spine from 06/28/22 reviewed Assessment and plan: Chronic LBP secondary to lumbar DDD, spondylosis with facet arthropathy without myelopathy Recommendation of BL SI injections. May need a series of injections for optimal pain relief. Risks, benefits of procedure discussed and pt verbalized understanding. Admits to anticoagulant use or medical history of diabetes. Protocol for discontinuation/ continuation of medications brianne procedure discussed. Minimal anesthesia provided, if clinically indicated, consisting of Versed and Fentanyl. All questions answered. I have spent less than 30 minutes on patient care today. Dr Calderon was available by phone for the evaluation of this patient. The time was used to review the medical records including relevant urine studies and Prescription history (MAPs), review of the available imaging, evaluation and examination of the patient, coordination of care with the medical staff and if applicable referring physicians, as well as creation of the medical record PQRS Narrative: Smoking Status Never smoker Hx Alcohol Use (MH) No Home Medications: Ambulatory Orders Aspirin 81 mg PO DAILY 01/17/16 Multivitamin [Men's Multi-Vitamin] 1 tab PO DAILY 01/17/16 Ibuprofen [Motrin] 800 mg PO DAILY PRN 02/04/16 Tamsulosin [Flomax] 0.4 mg PO DIRECTED 05/23/19 Controlled Substance Measures - Controlled Substance Measures Is patient prescribed a controlled substance at discharge?: No
== END ==
LOC: PNWHC3 08:17
PROVIDERS: ATTEND Specialist
DX: M51.36 Other intervertebral disc degeneration, lumbar region (principal); M47.816 Spondylosis without myelopathy or radiculopathy, lumbar region; G89.29 Other chronic pain; Z79.82 Long term (current) use of aspirin; Z88.8 Allergy status to other drugs, medicaments and biological substances
CPT/HCPCS: 99211

== ENCOUNTER 2023-09-06 07:59 | Day surgery (SDC) | payer OTHER ==
[2023-09-04 09:50] VITALS: BMI 30.3
[2023-09-06 08:26] VITALS: RESP 16; TEMP 97.3
[2023-09-06] MEDS ORDERED: IOPAMIDOL M200 10 ML VIAL ONE (08:29)
[2023-09-06] MEDS ORDERED: methylPREDNISolone ACETATE 80 MG/ML 1 ML VIAL ONE (08:29)
[2023-09-06] MEDS ORDERED: ROPIVACAINE 5MG/ML 20ML VIAL ONE (08:29)
--- NOTE | 2023-09-06 08:37 | P.PCN ---
Date of Procedure: 09/06/23 Procedure(s) Performed: Procedure= bilateral sacroiliac joints steroid injection under fluoroscopy guidance (fluoroscopy image stored on file in the radiology Department ) Preoperative diagnosis= 1-sacroiliitis 2-lumbar degenerative disc disease 3- lumbar facet arthropathy Postoperative diagnosis=Same as preop Diagnosis . Complication = none Condition= stable Anesthesia= local anesthesia with ropivacaine 0.5% 4 ml only Indication for the procedure= patient complaining of low back pain , examination was positive for severe tenderness over the sacroiliac joints bilaterally and patient diagnosed with sacroiliitis, for this reason he was good candidate for sacroiliac joint steroid injection. Description of the procedure= procedure risk and benefits discussed with the patient, including but not limited, risk of infection and bleeding, and ALLERGIC reaction to the medication and not complete pain relief and patient agreed with the preceding patient taken to the operating room, placed in prone position or standard monitors applied to the patient then after induction of anesthesia back prepped with chlorhexidine 3 times , Then under strict sterile technique, first I did the right sacroiliac joint the which was identified under fluoroscopy guidance been local infiltration of the skin and subcu interstitial with lidocaine 1% then 22-gauge Quincke Needle advanced slowly under fluoroscopy and placed in the right sacroiliac joint needle placement confirmed with AP and oblique and lateral view, then after that Isovue 200 one mL injected which confirmed the correct needle placement with the appropriate arthrogram of the sacroiliac joint, and after appropriate needle placement confirmed and after negative aspiration, or heme , then Ropivacaine 0.5% 2 mL, and 40 mg of Depo-Medrol mixed together and injected in the right sacroiliac joint after negative aspiration patient tolerated the procedure well without any complication. Then the left sacroiliac joint steroid injection done under strict sterile technique local infiltration of the skin and subcu interstitial at the location of the left sacroiliac joint then a 22-gauge Quincke Needle advanced slowly under fluoroscopy time placed in the left sacroiliac joint, needle placement confirmed with AP and oblique and lateral view then after appropriate needle placement confirmed, with the AP and oblique and lateral then after negative aspiration Isovue 200 1 mL injected showed arthropathy of the left sacroiliac joint, and after negative aspiration 0.5% Ropivacaine 2 mL and 40 mg of Depo- Medrol injected in the left sacroiliac joint after negative aspiration patient tolerated the procedure well that any complications and she will follow up in clinic 3 weeks
--- NOTE | 2023-09-06 08:50 | FL ---
Intraoperative/procedural fluoroscopic services were provided for bilateral SI joint injections. Tota l fluoroscopy time is 3.6 seconds with a total of 2 submitted images to PACS. Total DAP 0.61417 Gycm2 . Please see the operative note for further details.
[2023-09-06 08:54] VITALS: BP 108/63; PULSE 56
== END 2023-09-06 08:56 | disposition home or self-care (01) ==
LOC: ORPAIN 07:59
PROVIDERS: ATTEND Specialist
DX: M51.36 Other intervertebral disc degeneration, lumbar region (principal); M46.1 Sacroiliitis, not elsewhere classified; M47.816 Spondylosis without myelopathy or radiculopathy, lumbar region; Z79.82 Long term (current) use of aspirin; Z88.8 Allergy status to other drugs, medicaments and biological substances
CPT/HCPCS: 27096; J1040; Q9966; J2795

== ENCOUNTER → 2023-11-12 | Outpatient (CLI) | payer OTHER ==
[2023-11-12 08:51] VITALS: BP 144/90; PULSE 48; RESP 16
--- NOTE | 2023-11-12 09:32 | P.PAINPG ---
PQRS Measure Charge Sheet Comment: A 58 yr old male with a history of severe and chronic LBP secondary to lumbar DDD and spondylosis with facet arthropathy without myelopathy presents today for evaluation s/p BL SI #1. Pt states he experienced 20% pain relief x 10 wks s/p procedure. Pt states pain level is provoked at 8 /10 in intensity, constant, localized in the lower lumbar spine, predominantly axial, burning, sharp in character w occasional shooting pain towards the BL hips. Pain is provoked by walking/ standing for periods of 30 min or more. Pain is alleviated by PT x 5 wks in Nov 2022, chiropractic treatments semi monthly x 4 mo w last visit 1 m ago, ice, medications, topical, repositioning and sitting all with minimal re lief. Oswestry axial pain score of 22. Interventional procedures include REBEL L1-L2 x2, BL SI x1 Patient is currently on Ibu, Tyl, Tramadol Patient denies any side effects of the medication(s), denies excessive drowsiness or sleepiness, denies suicidal ideation and reports that the current pain medication is helping to control the pain and improve activities of daily living. Patient denies any motor or sensory deficits. Patient denies any fever or night sweats, denies any change in the bowel movements or urination. Physical Examination: -Constitutional: Cooperative. Not in acute distress . - Neurologic: Cranial nerve II to XII intact. No focal neurological deficits. - Psychatric: Alert & oriented x 3. Matching mood & appropriate affect. Judgment and insight intact. - Musculoskeletal: Cervical spine: Muscle bulk/ tone/ strength in the bilateral upper extremities normal Vertebral body tenderness to palpation over Spurling test positive Distraction test positive Facet loading test positive TTP Thoracic spine Muscle bulk / tone/ strength in the bilateral paraspinal muscles normal Vertebral body tender to palpation over Facet loading test positive TTP Lumbar spine: Motor bulk/ tone/ strength lower extremities , thigh and legs : 5/5 Deep tendon reflexes : Normal Knee Jerk. Normal Ankle Jerk . Vertebral body tenderness to palpation over L4 Maciel Test positive L4-L5 Lumbar Facet Loading Test positive Straight Leg Raise: positive at 30 degrees right side/ left side Gaenslen's Test positive Sacral spine : Severe tenderness over the Sacroiliac joint: right side / left side Range of motion: Flexion of the lumbar spine <60 degrees Range of motion: Extension of the lumbar spine <20 degrees Gaenslen's Test positive right side > left side Marcelina test: positive right side > left side Thigh Thrust Test positive right side / left side Sacral Thrust Test positive right side > left side Imaging: MRI noncontrast of BL hips from 06/28/22 reviewed MRI noncontrast of lumbar spine from 06/28/22 reviewed Assessment and plan: Chronic LBP secondary to lumbar DDD, spondylosis with facet arthropathy without myelopathy Recommendation of BL TFESI L4-L5 #1. May need a series of injections for optimal pain relief. Risks, benefits of procedure discussed and pt verbalized understanding. Admits to anticoagulant use or medical history of diabetes. Protocol for discontinuation/ continuation of medications brianne procedure discussed. All questions answered. I have spent less than 30 minutes on patient care today. Dr Calderon was available by phone for the evaluation of this patient. The time was used to review the medical records including relevant urine studies and Prescription history (MAPs), review of the available imaging, evaluation and examination of the patient, coordination of care with the medical staff and if applicable referring physicians, as well as creation of the medical record PQRS Narrative: Smoking Status Never smoker Hx Alcohol Use (MH) No Home Medications: Ambulatory Orders Aspirin 81 mg PO DAILY 01/17/16 Multivitamin [Men's Multi-Vitamin] 1 tab PO DAILY 01/17/16 Ibuprofen [Motrin] 800 mg PO DAILY PRN 02/04/16 Tamsulosin [Flomax] 0.4 mg PO DIRECTED 05/23/19 Controlled Substance Measures - Controlled Substance Measures Is patient prescribed a controlled substance at discharge?: No
== END ==
LOC: PNWHC3 08:29
PROVIDERS: ATTEND Specialist
DX: M51.36 Other intervertebral disc degeneration, lumbar region (principal); M47.816 Spondylosis without myelopathy or radiculopathy, lumbar region; G89.29 Other chronic pain; Z79.82 Long term (current) use of aspirin; Z88.8 Allergy status to other drugs, medicaments and biological substances
CPT/HCPCS: 99211

== ENCOUNTER → 2023-11-27 | Day surgery (SDC) | payer OTHER ==
[2023-11-23 08:41] VITALS: BMI 30.4
[~2023-11-27] MED LIST changes: +IOPAMIDOL M200 10 ML VIAL ONE; +methylPREDNISolone ACETATE 80 MG/ML 1 ML VIAL ONE
[2023-11-27 08:48] VITALS: TEMP 97
--- NOTE | 2023-11-27 09:17 | P.PCN ---
Date of Procedure: 11/27/23 Procedure(s) Performed: PREOPERATIVE DIAGNOSIS: 1-Lumbar radiculopathy . 2-lumbar degenerative disc disease. 3-lumbar spondylosis with lumbar facet arthropathy without myelopathy POSTOPERATIVE DIAGNOSIS: 1-lumbar radiculopathy. 2-lumbar degenerative disc disease. 3-lumbar spondylosis with facet arthropathy without myelopathy PROCEDURE 1. Transforaminal epidural steroid injection under fluoroscopic guidance at Bilateral L4-5 level. (Fluoroscopy images stored on file in the radiology Department ) 2. Lumbar epidurogram . ANESTHESIA: Local with 1% lidocaine 3 ml. EBL: Minimal PROCEDURE INDICATION: The patient with low back pain and radiculopathy symptoms unresponsive to conservative treatment. PROCEDURE DESCRIPTION / TECHNIQUE: The patient was seen and identified in the preoperative area. Risks, benefits, complications, and alternatives were discussed with the patient. The patient agreed to proceed with the procedure and signed the consent. IV was started, and vital signs were stable. Patient was taken to the OR and time out was completed. The patient was placed in the prone position on procedure table and a pillow was placed under the abdomen to reduce lumbar lordosis. The lumbosacral area was prepped and draped in the usual sterile fashion. Critical pause was taken. Vital signs were closely monitored during the procedure. Using oblique fluoroscopy, the chin of the ``Eliazar dog at right L4-5 level was identified, and the skin and deeper tissues just below was localized with 1% lidocaine. Subsequently, a 22-gauge 3.5-inch spinal needle was advanced under a tunneled view fluoroscopic guidance just underneath the chin of the `Erickay dog at the right L4-5 Under lateral fluoroscopy, the needle was then advanced to the posterior border of the interforaminal space. After negative aspiration of CSF and blood and with no paresthesias, 1 mL Isovue 200 contrast dye was injected excellent epidurogram and outlining of the nerve root Subsequently, 3 mL of block solution containing 40 mg Depo-Medrol and 2 mL of 0.9% normal saline PF was injected. Needle was removed and the same procedure was repeated at the left L4-5 level. At the end of the procedure, skin was cleansed, and bandages were applied. COMPLICATIONS:none DISPOSITION / PLANS: The patient was placed in a supine position and transferred to the recovery area in a stable condition for observation. There was no evidence of lower extremity motor or sensory deficit after the procedure. Patient was discharged from the recovery room after meeting discharge criteria. Home discharge instructions were given to the patient by the staff. The patient was reexamined prior to discharge.
--- NOTE | 2023-11-27 09:28 | FL ---
Fluoroscopy History: TRANSFORAMINAL EPI Transforaminal EPI Dr. Lovelace Fluoro- 5sec DAP- 0.11381
[2023-11-27 09:48] VITALS: BP 118/77; PULSE 58; RESP 14
== END ==
LOC: ORPAIN 08:12
PROVIDERS: ATTEND Specialist
DX: M51.16 Intervertebral disc disorders with radiculopathy, lumbar region (principal); M47.26 Other spondylosis with radiculopathy, lumbar region; Z88.8 Allergy status to other drugs, medicaments and biological substances; Z79.899 Other long term (current) drug therapy
CPT/HCPCS: 64483; J1040; Q9966

== ENCOUNTER → 2023-12-17 | Outpatient (CLI) | payer OTHER ==
[2023-12-17 09:10] VITALS: BP 137/77; PULSE 89; RESP 15; TEMP 98.6
--- NOTE | 2023-12-17 12:46 | P.PAINPG ---
Objective - Vital Signs Vital signs: Intake & Output 12/16/23 12/17/23 12/17/23 18:59 06:59 18:59 Weight 90.718 kg PQRS Measure Charge Sheet Comment: A 58 yr old male with a history of severe and chronic LBP secondary to lumbar DDD and spondylosis with facet arthropathy without myelopathy presents today for evaluation s/p BL TFESI L4-L5 #1. Pt states he experienced 75 % pain relief x 1 wks s/p procedure. Pt states pain level is provoked at 6 /10 in intensity, constant, localized in the lower lumbar spine, predominantly axial, burning, sharp in character w occasional shooting pain towards the BL hips. Pain is provoked by walking/ standing for periods of 30 min or more. Pain is alleviated by PT x 5 wks in Nov 2022, chiropractic treatments semi monthly x 4 mo w last visit 1 m ago, ice, medications, topical, repositioning and sitting all with minimal relief. Oswestry axial pain score of 22. Interventional procedures include REBEL L1-L2 x2, BL SI x1, BL TFESI L4-L5 x1 Patient is currently on Ibu, Tyl, Tramadol Patient denies any side effects of the medication(s), denies excessive drowsiness or sleepiness, denies suicidal ideation and reports that the current pain medication is helping to control the pain and improve activities of daily living. Patient denies any motor or sensory deficits. Patient denies any fever or night sweats, denies any change in the bowel movements or urination. Physical Examination: -Constitutional: Cooperative. Not in acute distress . - Neurologic: Cranial nerve II to XII intact. No focal neurological deficits. - Psychatric: Alert & oriented x 3. Matching mood & appropriate affect. Judgment and insight intact. - Musculoskeletal: Cervical spine: Muscle bulk/ tone/ strength in the bilateral upper extremities normal Vertebral body tenderness to palpation over Spurling test positive Distraction test positive Facet loading test positive TTP Thoracic spine Muscle bulk / tone/ strength in the bilateral paraspinal muscles normal Vertebral body tender to palpation over Facet loading test positive TTP Lumbar spine: Motor bulk/ tone/ strength lower extremities , thigh and legs : 5/5 Deep tendon reflexes : Normal Knee Jerk. Normal Ankle Jerk . Vertebral body tenderness to palpation over L4 Maciel Test positive L4-L5 Lumbar Facet Loading Test positive BL L4-L5, L5-S1 Straight Leg Raise: positive at 30 degrees right side/ left side Gaenslen's Test positive Sacral spine : Severe tenderness over the Sacroiliac joint: right side / left side Range of motion: Flexion of the lumbar spine <60 degrees Range of motion: Extension of the lumbar spine <20 degrees Gaenslen's Test positive right side > left side Marcelina test: positive right side > left side Thigh Thrust Test positive right side / left side Sacral Thrust Test positive right side > left side Imaging: MRI noncontrast of BL hips from 06/28/22 reviewed MRI noncontrast of lumbar spine from 06/28/22 reviewed Assessment and plan: Chronic LBP secondary to lumbar DDD, spondylosis with facet arthropathy without myelopathy Recommendation of BL MBB L3-L5 #1. May need a series of injections, up until RFA, for optimal pain relief. Risks, benefits of procedure discussed and pt verbalized understanding. Admits to anticoagulant use or medical history of diabetes. Protocol for discontinuation/ continuation of medications brianne procedure discussed. All questions answered. I have spent less than 30 minutes on patient care today. Dr Calderon was available by phone for the evaluation of this patient. The time was used to review the medical records including relevant urine studies and Prescription history (MAPs), review of the available imaging, evaluation and examination of the patient, coordination of care with the medical staff and if applicable referring physicians, as well as creation of the medical record - Pain Location Bilateral Lower Back Pharmacological Interventions: Epidural, PRN Medication PQRS Narrative: Smoking Status Never smoker Hx Alcohol Use (MH) No Home Medications: Ambulatory Orders Aspirin 81 mg PO DAILY 01/17/16 Multivitamin [Men's Multi-Vitamin] 1 tab PO DAILY 01/17/16 Ibuprofen [Motrin] 800 mg PO DAILY PRN 02/04/16 Bisoprolol [Zebeta] 5 mg PO DAILY 11/23/23 Celecoxib [CeleBREX] 200 mg PO BID 11/23/23 Losartan [Cozaar] 12.5 mg PO DAILY 11/23/23 Rosuvastatin [Crestor] 10 mg PO DAILY 11/23/23 Sertraline [Zoloft] 25 mg PO HS 11/23/23 armodafiniL [Armodafinil] 200 mg PO QAM 11/23/23 traZODone HCL 200 mg PO HS 11/23/23 Controlled Substance Measures - Controlled Substance Measures Is patient prescribed a controlled substance at discharge?: No
== END ==
LOC: PNWHC3 08:25
PROVIDERS: ATTEND Specialist
DX: M51.37 Other intervertebral disc degeneration, lumbosacral region (principal); M47.817 Spondylosis without myelopathy or radiculopathy, lumbosacral region; G89.29 Other chronic pain; Z79.82 Long term (current) use of aspirin; Z88.8 Allergy status to other drugs, medicaments and biological substances
CPT/HCPCS: 99211

== ENCOUNTER 2023-12-27 08:00 | Day surgery (SDC) | payer OTHER ==
[2023-12-25 12:27] VITALS: BMI 29.8
[~2023-12-27 08:00] MED LIST changes: -IOPAMIDOL M200 10 ML VIAL ONE; -methylPREDNISolone ACETATE 80 MG/ML 1 ML VIAL ONE
[2023-12-27] MEDS: LACTATED RINGERS 1,000 ML IV ONE (08:50)
[2023-12-27 09:27] VITALS: TEMP 96.9
[2023-12-27] MEDS ORDERED: MIDAZOLAM 2 MG/2 ML VIAL ONE (10:22)
[2023-12-27] MEDS ORDERED: ROPIVACAINE 5MG/ML 20ML VIAL ONE (10:22)
[2023-12-27] MEDS: IV FLUID CONTINUATION 1,000 ML IV ONE (10:47)
--- NOTE | 2023-12-27 10:58 | P.PCN ---
Description of Procedure: Preprocedure diagnosis. 1. Lumbar spondylosis with facet joint arthropathy without myelopathy. 2. Lumbar degenerative disc disease. Postprocedure diagnosis. As above. Procedure done. Bilateral diagnostic block with local anesthetics at L3, L4, L5 medial branch with fluoroscopic guidance (fluoroscopy images are available in [facility] radiology department) target to the facet joint bilateral L4 5 and L5-S1 levels. Anesthesia. Related anesthesia care as per anesthesia department/ moderate sedation with intravenous Versed 2 mg and fentanyl and local infiltration with local anesthetics. Blood loss. Minimal. Indication. The patient has low back pain secondary to lumbar facet joint arthropathy. Discussed the procedure and alternative and complications which includes infection, bleeding, nerve damage, aggravation of pain. Patient understands and all questions were answered. Patient iunderstands that if any pain relief occurs it will last for a few hours to a few days maximum. Procedure description. After getting consent patient was taken in the OR in prone position. Back prepped with chlorhexidine and draped in sterile fashion. After injecting 5 mL of plain 1% lidocaine subcutaneously, a 22-gauge spinal needle was introduced under tunnel vision of the fluoroscope at the junction of the superior articular process with right ala of the sacrum. With slight right oblique fluoroscope, after injecting 5 mL of plain 1% lidocaine subcutaneously, a 22-gauge spinal needle was introduced under tunnel vision of the fluoroscope at the junction of the superior articular process with right L5 transverse process, junction of the superior articular process with the right L4 transverse process. After needle position confirmation by AP and crosstable lateral view, after negative aspiration, half milliliters of 0.5% ropivacaine were injected at each point. In exactly same way, left sided injections were done at the following 3 points. Junction of the superior articular process with left ala of the sacrum, junction of the superior articular process with the left L5 transverse process, junction of the superior articular process with left L4 transverse process. Total 3 mL of 0.5% ropivacaine was injected. Spinal needles were taken out and bandages were applied. Disposition. Patient tolerated the procedure well. No complication. Discharged home in stable condition.
[2023-12-27 11:38] VITALS: BP 130/79; PULSE 50; RESP 18
--- NOTE | 2023-12-27 13:33 | FL ---
EXAMINATION TYPE: FL guided pain mgmt statistic Intraoperative/procedural fluoroscopic services were provided. Total fluoroscopy time is 56.9 seconds with a total of 4 submitted images to PACS. Please s ee the operative/procedural note for further details. DAP: 0.21239 [employer]Gym2
== END 2023-12-27 11:33 | disposition home or self-care (01) ==
LOC: ORPAIN 08:00
PROVIDERS: ATTEND Pain Medicine Interventional Pain Medicine
DX: M51.36 Other intervertebral disc degeneration, lumbar region (principal); M47.816 Spondylosis without myelopathy or radiculopathy, lumbar region; Z88.8 Allergy status to other drugs, medicaments and biological substances; Z79.82 Long term (current) use of aspirin
CPT/HCPCS: 64494 ×2; 99152; 64493; J2250; J2795

== ENCOUNTER → 2024-01-16 | Outpatient (CLI) | payer OTHER ==
[2024-01-16 09:41] VITALS: BP 142/72; PULSE 88; RESP 15; TEMP 98.6
--- NOTE | 2024-01-16 13:51 | P.PAINPG ---
PQRS Measure Charge Sheet Comment: A 58 yr old male with a history of severe and chronic LBP secondary to lumbar DDD and spondylosis with facet arthropathy without myelopathy presents today for evaluation s/p BL MBB L3-L5 #1. Pt states he experienced 80 % pain relief x 2 wks s/p procedure. Pt states pain level is provoked at 6 /10 in intensity, constant, localized in the lower lumbar spine, predominantly axial, burning, sharp in character w occasional shooting pain towards the BL hips. Pain is provoked by walking/ standing for periods of 30 min or more. Pain is alleviated by PT x 5 wks in Nov 2022, chiropractic treatments semi monthly x 4 mo w last visit 1 m ago, ice, medications, topical, repositioning and sitting all with minimal relief. Oswestry axial pain score of 21. Interventional procedures include REBEL L1-L2 x2, BL SI x1, BL TFESI L4-L5 x1, BL MBB L3-L5 x1 Patient is currently on Ibu, Tyl, Tramadol Patient denies any side effects of the medication(s), denies excessive drowsiness or sleepiness, denies suicidal ideation and reports that the current pain medication is helping to control the pain and improve activities of daily living. Patient denies any motor or sensory deficits. Patient denies any fever or night sweats, denies any change in the bowel movements or urination. Physical Examination: -Constitutional: Cooperative. Not in acute distress . - Neurologic: Cranial nerve II to XII intact. No focal neurological deficits. - Psychatric: Alert & oriented x 3. Matching mood & appropriate affect. Judgment and insight intact. - Musculoskeletal: Cervical spine: Muscle bulk/ tone/ strength in the bilateral upper extremities normal Vertebral body tenderness to palpation over Spurling test positive Distraction test positive Facet loading test positive TTP Thoracic spine Muscle bulk / tone/ strength in the bilateral paraspinal muscles normal Vertebral body tender to palpation over Facet loading test positive TTP Lumbar spine: Motor bulk/ tone/ strength lower extremities , thigh and legs : 5/5 Deep tendon reflexes : Normal Knee Jerk. Normal Ankle Jerk . Vertebral body tenderness to palpation over L4 Maciel Test positive L4-L5 Lumbar Facet Loading Test positive BL L4-L5, L5-S1 Straight Leg Raise: positive at 30 degrees right side/ left side Gaenslen's Test positive Sacral spine : Severe tenderness over the Sacroiliac joint: right side / left side Range of motion: Flexion of the lumbar spine <60 degrees Range of motion: Extension of the lumbar spine <20 degrees Gaenslen's Test positive right side > left side Marcelina test: positive right side > left side Thigh Thrust Test positive right side / left side Sacral Thrust Test positive right side > left side Imaging: MRI noncontrast of BL hips from 06/28/22 reviewed MRI noncontrast of lumbar spine from 06/28/22 reviewed Assessment and plan: Chronic LBP secondary to lumbar DDD, spondylosis with facet arthropathy without myelopathy Recommendation of BL MBB L3-L5 #2. May need a series of injections, up until RFA, for optimal pain relief. Risks, benefits of procedure discussed and pt verbalized understanding. Admits to anticoagulant use or medical history of diabetes. Protocol for discontinuation/ continuation of medications brianne procedure discussed. All questions answered. I have spent less than 30 minutes on patient care today. Dr Calderon was available by phone for the evaluation of this patient. The time was used to review the medical records including relevant urine studies and Prescription history (MAPs), review of the available imaging, evaluation and examination of the patient, coordination of care with the medical staff and if applicable referring physicians, as well as creation of the medical record PQRS Narrative: Smoking Status Never smoker Hx Alcohol Use (MH) No Home Medications: Ambulatory Orders Aspirin 81 mg PO DAILY 01/17/16 Multivitamin [Men's Multi-Vitamin] 1 tab PO DAILY 01/17/16 Ibuprofen [Motrin] 800 mg PO DAILY PRN 02/04/16 Bisoprolol [Zebeta] 5 mg PO DAILY 11/23/23 Celecoxib [CeleBREX] 200 mg PO BID 11/23/23 Losartan [Cozaar] 12.5 mg PO DAILY 11/23/23 Rosuvastatin [Crestor] 10 mg PO DAILY 11/23/23 Sertraline [Zoloft] 25 mg PO HS 11/23/23 armodafiniL [Armodafinil] 200 mg PO QAM 11/23/23 traZODone HCL 200 mg PO HS 11/23/23 Controlled Substance Measures - Controlled Substance Measures Is patient prescribed a controlled substance at discharge?: No
== END ==
LOC: PNWHC3 08:53
PROVIDERS: ATTEND Specialist
DX: M51.37 Other intervertebral disc degeneration, lumbosacral region (principal); M47.817 Spondylosis without myelopathy or radiculopathy, lumbosacral region; G89.29 Other chronic pain; Z88.8 Allergy status to other drugs, medicaments and biological substances
CPT/HCPCS: 99211

== ENCOUNTER 2024-02-08 07:44 | Day surgery (SDC) | payer OTHER ==
[2024-02-08] MEDS: LACTATED RINGERS 1,000 ML IV SCH (08:19)
[2024-02-08 08:42] VITALS: TEMP 97
[2024-02-08] MEDS ORDERED: MIDAZOLAM 2 MG/2 ML VIAL ONE (08:47)
[2024-02-08] MEDS ORDERED: ROPIVACAINE 5MG/ML 20ML VIAL ONE (08:50)
--- NOTE | 2024-02-08 09:01 | P.PCN ---
Date of Procedure: 02/08/24 Procedure(s) Performed: PREOPERATIVE DIAGNOSIS : 1- Lumbar spondylosis with Facet Arthropathy with out myelopathy . 2- Lumber degenerative disc disease POSTOPERATIVE DIAGNOSIS: 1- Lumbar spondylosis with Facet Arthropathy without myelopathy . 2- Lumber degenerative disc disease PROCEDURE: Diagnostic bilateral L3 , L4 , and L5 medial branch block under fluoroscopy guidance(fluoroscopy images available in the radiology Department ) ( To target the facet joint between Bilateral L4-5 , and L5- S1 )#2nd ANESTHESIA:, Monitored anesthesia care as per anesthesia department. EBL: Minimal COMPLICATION: None PROCEDURE INDICATION: Chronic low back pain secondary to Facet arthropathy unresponsive to conservative treatment. PROCEDURE DESCRIPTION: the patient was seen and identified in the preop holding area , risks and benefits and possible complications of the procedure and alternative were discussed with the patient, and the patient agreed to proceed with the procedure and signed the consent and vital signs monitored during the procedure and fluoroscopy was used to maximize the benefit and accuracy of the needle placement, and sedation was given to decrease patient anxiety, patient was taken to the procedure room and placed in prone position vital signs monitored in the back prepped with chlorhexidine X3 then under strict sterile technique using a right oblique fluoroscopy ,the junction of the transverse process and the superior articulating process of the right L3 , L4 , and L5 vertebra which corresponding to the fluoroscopy image of the eye of the Eliazar dog on the block side for the medial branches and subsequently , after local infiltration of skin and subcu tissuies with Ropivacaine 0.5 % , one mL at each level ,then 22-gauge Quincke-type needles , 3 needle was used , each one of them placed at the junction of the base of the transverse process and the superior articular process at the appropriate level, and the needle was advanced until the periosteum contacted, needle placement confirmed with AP oblique and lateral view and after appropriate needle placement confirmed, and after negative aspiration for heme and CSF and there was no paresthesia 1-1/2 mL of Ropivacaine 0.5% , then half mL injected at each level after negative aspiration the needle subsequently removed and the same procedure repeated for the left side at left side at L3 , L4 and L5 levels. At the end of the procedure and the needles removed and a bandage applied after the skin was cleaned the cleaning solution patient taken to recovery room in stable condition and monitors in the recovery room for 20-30 minutes and discharged home in stable condition after discharge criteria met and patient will follow up with the pain clinic in 2-4 weeks
[2024-02-08] MEDS: LACTATED RINGERS 1,000 ML IV ONE (09:03)
--- NOTE | 2024-02-08 09:17 | FL ---
Fluoroscopy History: FACET BLOCK LUMBAR Lumbar facet block 0.99067 dap 6 sec fl time
[2024-02-08 09:27] VITALS: PULSE 48
[2024-02-08 10:08] VITALS: BP 123/76; RESP 18
== END 2024-02-08 09:43 | disposition home or self-care (01) ==
LOC: ORPAIN 07:44
PROVIDERS: ATTEND Specialist
DX: M51.36 Other intervertebral disc degeneration, lumbar region (principal); M47.816 Spondylosis without myelopathy or radiculopathy, lumbar region; G89.29 Other chronic pain; I10 Essential (primary) hypertension; E78.5 Hyperlipidemia, unspecified; F32.A Depression, unspecified; Z88.0 Allergy status to penicillin; Z79.899 Other long term (current) drug therapy; Z79.82 Long term (current) use of aspirin
CPT/HCPCS: 64494 ×2; 64493; J2250; J2795

== ENCOUNTER → 2024-02-28 | Outpatient (CLI) | payer OTHER ==
--- NOTE | 2024-02-28 10:10 | P.PAINPG ---
Subjective Progress Note Date: 02/28/24 Principal diagnosis: lumbar back pain Mr. Chacko is a 58 -year-old pleasant male came to the [facility] pain clinic forpostprocedure evaluation. Patient has ongoing pain for many years. Patient describes pain is aching, throbbing, constant type of pain. Pain is radiating to bilateral back of the knee area sometimes. Patient rated pain levels are 5out of 10 in severity. With the help of medications pain levels are4-5out of 10 in severity. Activities making pain worse. Medications, resting, intervention procedure helping in relieving patient's pain. he had bilateral L4-L5, L5-S1 medial branch block #2 he had 50-80% pain relief for 5-6 days duration. But his pain is more as the day goes on. But it was very helpful for his sleep, and functional activities. Patient pain some days better than others. Overall activities decreased secondary to pain. Because of the pain sometimes patient is feeling lack of sleep, interest, and energy. Denied any side effects with the medications. Denied any bowel or bladder problems at this time. patient is not using any walking aids for walking support. Patient denies any suicidal or homicidal ideations intent or plan. Patient denies any auditory or visual hallucinations. Patient denied any red flag symptoms related to pain. Objective - Exam General: Well-developed, well-nourished, no acute distress HEENT: Normocephalic, and atraumatic Neck: Supple, no neck swelling Psychiatric: Appropriate mood, and affect PHYSICIAN PRACTICE CONSULTANT: No focal neurological deficits Musculoskeletal: Upper extremity: Normal strength, and range of motion. Sensation grossly intact Lower extremity: Normal strength, and normal range of motion Lumbar spine: Paravertebral tenderness: positive Lumbar facet load test : positive Sacroiliac joint tenderness: negative - Constitutional Constitutional Comment(s): 13 point review of symptoms negative except as mentioned in the history of present illness. Assessment and Plan Assessment: lumbar spondylosis without myelopathy Lumbar myofascial pain syndrome Plan: #1 Diagnoses, prognosis, and multiple treatment options including but not limited to physical therapy, interventional therapy, adjunct medication therapy, narcotic medication, and surgical options were discussed with the patient. And all questions were answered to the patient's satisfaction. #2 treatment plan agreement : Patient was thoroughly discussed regarding the treatment options, alternatives, and importance of exercises as tolerated. Patient clearly understood. #3 Patient was counseled on importance of regular exercise. Including adriana chi, aerobic exercises as tolerated. Which helps for chronic pain, and overall well- being. #4 investigations: MAPS- reviewed , urine drug test- not done #5 diagnostic tests: none #6 consultation : none # 7 interventional procedures:bilateral lumbar L4-L5, L5-S1 medial branch radiofrequency ablation . Procedure, complications, alternatives discussed with the patient. #8 medications none #9 morphine milligrams equivalents dose ( MME) per day: none from the pain clinic. # 10 TENS unit's, and percussion massage device #11 disposition: scheduled to follow up with pain clinic in4- 8 weeks weeks duration. Time with Patient: Less than 30 PQRS Measure Charge Sheet Measure #130: Documentation of Current Meds in Medical Chart: Patient's medications documented in chart Measure #226: Tobacco Use: Screen & Cessation Intervention: Pt not a tobacco user Measure #111: Pneumonia Vaccination: Pneumococcal vaccine NOT administered or previously given Measure #47: Advance Care Plan: Advance care planning discussed & documented, plan or surrogate given Measure #412: Opioid Treatment Agreement: No documentation of signed opioid treatment agreement Measure #408: Opioid Therapy Follow-up Evaluation: Patient had NO f/u eval minimum every 3 months during opioid therapy Measure #317: Preventitive Care & Scrn High Bld Press & F/U: Pre-hypertensive or hypertensive BP documented, pt will f/u with PCP Measure #128: Body Mass Index (BMI) Screening & Follow-up: BMI documented within normal parameters Measure #131: Pain Assessment & Follow-up: Pain positive & plan documented Measure #431: Unhealthy Alcohol Use Preventative Care & Scrn: Patient not owen ntified as an unhealthy alcohol user PQRS Narrative: Smoking Status Never smoker Hx Alcohol Use (MH) No Home Medications: Ambulatory Orders Aspirin 81 mg PO DAILY 01/17/16 Multivitamin [Men's Multi-Vitamin] 1 tab PO DAILY 01/17/16 Ibuprofen [Motrin] 800 mg PO DAILY PRN 02/04/16 Bisoprolol [Zebeta] 5 mg PO DAILY 11/23/23 Celecoxib [CeleBREX] 200 mg PO BID 11/23/23 Losartan [Cozaar] 12.5 mg PO DAILY 11/23/23 Rosuvastatin [Crestor] 10 mg PO DAILY 11/23/23 Sertraline [Zoloft] 25 mg PO HS 11/23/23 armodafiniL [Armodafinil] 200 mg PO QAM 11/23/23 traZODone HCL 200 mg PO HS 11/23/23 Controlled Substance Measures - Controlled Substance Measures Is patient prescribed a controlled substance at discharge?: No
[2024-02-28 10:51] VITALS: BP 104/69; PULSE 97; RESP 16; TEMP 97.8
== END ==
LOC: PNWHC3 08:40
DX: M47.816 Spondylosis without myelopathy or radiculopathy, lumbar region (principal); M79.18 Myalgia, other site; G89.29 Other chronic pain; M54.50 Low back pain, unspecified; M25.562 Pain in left knee; M25.561 Pain in right knee; Z71.82 Exercise counseling; Z88.8 Allergy status to other drugs, medicaments and biological substances
CPT/HCPCS: 99211

== ENCOUNTER 2024-03-14 07:52 | Day surgery (SDC) | payer OTHER ==
[2024-03-14] MEDS: LACTATED RINGERS 1,000 ML IV SCH (08:17)
[2024-03-14] MEDS ORDERED: fentaNYL (PF) 50 MCG/ML 2 ML AMP ONE (08:30)
[2024-03-14] MEDS ORDERED: MIDAZOLAM 2 MG/2 ML VIAL ONE (08:30)
[2024-03-14] MEDS ORDERED: TRIAMCINOLONE ACETONIDE 40 MG/ML 1 ML VIAL ONE (08:33)
[2024-03-14] MEDS ORDERED: ROPIVACAINE 5MG/ML 20ML VIAL ONE (08:33)
[2024-03-14 08:35] VITALS: PULSE 45; TEMP 96.9
--- NOTE | 2024-03-14 08:59 | P.PCN ---
Date of Procedure: 03/14/24 Description of Procedure: Pre- and Post-operative Diagnosis: Lumbar facet arthropathy, and lumbar spondylosis without myelopathy. Procedure: Bilateral L4-5 radiofrequency thermocoagulation of medial branch under fluoroscopic guidance Bilateral L5-S1 dorsal ramus radiofrequency ther mocoagulation under fluoroscopic guidance Surgeon: Alejandra Lino Anesthesia: Local: 1% Lidocaine, IV sedation : Midazolam 1mg, and fentanyl 50 + 75 micrograms. Complications: None Estimated blood loss: None. Specimen removed: None Fluoroscopic image: Saved to patient electronic medical records. Indications for Procedure: The patient is well known to pain clinic for his chronic low back pain management. The lumbar facet loading test was positive with a clinical diagnosis of lumbar facet arthropathy. Patient had marked decrease in pain after the diagnostic medial branch procedure. Came here for radiofrequency ablation for longer pain relief. PROCEDURE DESCRIPTION: The patient was seen and identified in the preoperative area. Risks, benefits, complications, and alternatives were discussed with the patient. The patient agreed to proceed with the procedure and signed the consent. IV was started. Vital signs were stable. Patient was taken to the procedure room and timeout was completed. The patient was placed in the prone position on procedure table and a pillow was placed under the abdomen to reduce lumbar lordosis. The lumbosacral area was prepped and draped in the usual sterile fashion. Critical pause was taken. Vital signs were closely monitored during the procedure. The fluoroscopic camera was placed in the anteroposterior position to identify the junction of superior articular process and its corresponding injection with its transverse process of Right side L4, L5, S1, which were anesthetized with 1% lidocaine. We used 18-gauge 100-mm curved, sharp radiofrequency cannula with 10-mm active tip for the procedure. The first cannula was guided by fluoroscopy to the S1 superior articular process and its corresponding junction with its ala. The second cannula was guided by fluoroscopy into the L5 superior articular process and its corresponding junction with its transverse process and pedicle. The third cannula was guided by fluoroscopy into the L4 SAP and its corresponding junction with its transverse process and its pedicle. After confirmation of needle tip position on oblique view, and lateral view each site underwent motor testing at 2 Hz and 0 to 2.5 volts, and there was good motor stimulation in the back and no radicular symptoms or paresthesias. After confirmation of motor testing, 0.5 mL of block solution injected at each site . Block solution contained 4 mL of 0.5% ropivacaine preservative free mixed with 40 MG of Kenalog. At this time, each site was ablated using continuous radiofrequency mode at 80 degrees Celsius for 90 seconds at each level. At the end of the procedure, each needle was retracted approximately 1 cm and the skin was infiltrated with 0.5% ropivacaine preservative free 1 ml at each site. Skin was cleansed and bandages were applied. Entire procedure repeated on the left side. Skin was cleansed and bandages were applied. Disposition : The patient tolerated the procedure very well. The patient was transferred to the recovery room and remained stable until discharged home. The patient was given detailed discharge instructions for infection, bleeding, and increased pain at the injection site, and was advised to seek immediate medical attention should significant side effects develop. The patient will be scheduled with Pain Clinic within 4 -8 weeks.
[2024-03-14] MEDS: IV FLUID CONTINUATION 1,000 ML IV ONE (09:01)
--- NOTE | 2024-03-14 09:26 | FL ---
EXAMINATION TYPE: FL guided pain mgmt statistic Intraoperative/procedural fluoroscopic services were provided. Total fluoroscopy time is 14 seconds with a total of 7 submitted images to PACS. Please see the operative/procedural note for further details. DAP: [id number] mGym2
[2024-03-14 09:32] VITALS: BP 109/65; RESP 16
== END 2024-03-14 09:41 | disposition home or self-care (01) ==
LOC: ORPAIN 07:52
DX: M47.816 Spondylosis without myelopathy or radiculopathy, lumbar region (principal); G89.29 Other chronic pain; I10 Essential (primary) hypertension; E78.5 Hyperlipidemia, unspecified; F41.9 Anxiety disorder, unspecified; F32.A Depression, unspecified; E78.00 Pure hypercholesterolemia, unspecified; G47.33 Obstructive sleep apnea (adult) (pediatric); Z98.890 Other specified postprocedural states; Z79.899 Other long term (current) drug therapy; Z88.8 Allergy status to other drugs, medicaments and biological substances
CPT/HCPCS: 64635; 64636 ×2; 99152; 99153; J2250; J3301; J3010; J2795

== ENCOUNTER → 2024-04-21 | Outpatient (CLI) | payer OTHER ==
[2024-04-21 09:15] VITALS: BP 118/70; PULSE 52; RESP 16; TEMP 96.9
--- NOTE | 2024-04-21 14:59 | P.PAINPG ---
Objective - Vital Signs Vital signs: Intake & Output 04/20/24 04/21/24 04/21/24 18:59 06:59 18:59 Weight 62.142 kg PQRS Measure Charge Sheet Comment: A 59 yr old male with a history of severe and chronic LBP secondary to lumbar DDD and spondylosis with facet arthropathy without myelopathy presents today for evaluation s/p BL RFA L3-L5. Pt states he experienced 50 % pain relief s/p procedure. Pt states pain level is provoked at 9 /10 in intensity, constant, l ocalized in the lower lumbar spine, predominantly axial, burning, sharp in character w occasional shooting pain towards the BL hips and LEs. Pain is provoked by sitting for periods > 30 min. Pain is alleviated by PT x 5 wks in Nov 2022, chiropractic treatments semi monthly x 4 mo w last visit 1 m ago, ice, medications, topical, repositioning and sitting all with minimal relief. Oswestry axial pain score of 20. Interventional procedures include REBEL L1-L2 x2, BL SI x1, BL TFESI L4-L5 x1, BL RFA L3-L5 (February 2024) Patient is currently on Ibu, Tyl, Tramadol Patient denies any side effects of the medication(s), denies excessive drowsiness or sleepiness, denies suicidal ideation and reports that the current pain medication is helping to control the pain and improve activities of daily living. Patient denies any motor or sensory deficits. Patient denies any fever or night sweats, denies any change in the bowel movements or urination. Physical Examination: -Constitutional: Cooperative. Not in acute distress . - Neurologic: Cranial nerve II to XII intact. No focal neurological deficits. - Psychatric: Alert & oriented x 3. Matching mood & appropriate affect. Judgment and insight intact. - Musculoskeletal: Cervical spine: Muscle bulk/ tone/ strength in the bilateral upper extremities normal Vertebral body tenderness to palpation over Spurling test positive Distraction test positive Facet loading test positive TTP Thoracic spine Muscle bulk / tone/ strength in the bilateral paraspinal muscles normal Vertebral body tender to palpation over Facet loading test positive TTP Lumbar spine: Motor bulk/ tone/ strength lower extremities , thigh and legs : 5/5 Deep tendon reflexes : Normal Knee Jerk. Normal Ankle Jerk . Vertebral body tenderness to palpation over L4 Maciel Test positive L4-L5 Lumbar Facet Loading Test positive BL L4-L5, L5-S1 Straight Leg Raise: positive at 30 degrees right side/ left side Gaenslen's Test positive Sacral spine : Severe tenderness over the Sacroiliac joint: right side / left side Range of motion: Flexion of the lumbar spine <60 degrees Range of motion: Extension of the lumbar spine <20 degrees Gaenslen's Test positive right side > left side Marcelina test: positive right side > left side Thigh Thrust Test positive right side / left side Sacral Thrust Test positive right side > left side Imaging: MRI noncontrast of BL hips from 06/28/22 reviewed MRI noncontrast of lumbar spine from 06/28/22 reviewed Assessment and plan: Chronic LBP secondary to lumbar DDD, spondylosis with facet arthropathy without myelopathy, L Sacroiliitis Recommendation of L SI injection #1. May need a series of injections for optimal pain relief. Risks, benefits of procedure discussed and pt verbalized understanding. Admits to anticoagulant use or medical history of diabetes. Protocol for discontinuation/ continuation of medications brianne procedure discussed. Contact information for Dr Aaron Vergara provided. All questions answered. I have spent less than 30 minutes on patient care today. Dr Calderon was available by phone for the evaluation of this patient. The time was used to review the medical records including relevant urine studies and Prescription history (MAPs), review of the available imaging, evaluation and examination of the patient, coordination of care with the medical staff and if applicable referring physicians, as well as creation of the medical record PQRS Narrative: Smoking Status Never smoker Hx Alcohol Use (MH) No Home Medications: Ambulatory Orders Multivitamin [Men's Multi-Vitamin] 1 tab PO QAM 01/17/16 Ibuprofen [Motrin] 800 mg PO DAILY PRN 02/04/16 Bisoprolol [Zebeta] 5 mg PO QAM 11/23/23 Celecoxib [CeleBREX] 200 mg PO BID 11/23/23 Losartan [Cozaar] 12.5 mg PO QAM 11/23/23 Rosuvastatin [Crestor] 10 mg PO QAM 11/23/23 Sertraline [Zoloft] 25 mg PO HS 11/23/23 armodafiniL [Armodafinil] 200 mg PO QAM 11/23/23 traZODone HCL 200 mg PO HS 11/23/23 Folic Acid 1 mg PO DAILY 03/14/24 Tamsulosin [Flomax] 0.4 mg PO DAILY 03/14/24 Controlled Substance Measures - Controlled Substance Measures Is patient prescribed a controlled substance at discharge?: No
== END ==
LOC: PNWHC3 08:53
PROVIDERS: ATTEND Specialist
DX: M51.37 Other intervertebral disc degeneration, lumbosacral region (principal); M47.817 Spondylosis without myelopathy or radiculopathy, lumbosacral region; M46.1 Sacroiliitis, not elsewhere classified; Z88.8 Allergy status to other drugs, medicaments and biological substances
CPT/HCPCS: 99211

== ENCOUNTER 2024-05-20 08:25 | Day surgery (SDC) | payer OTHER ==
[2024-05-19 10:42] VITALS: BMI 31.4
[2024-05-20 09:28] VITALS: TEMP 97.9
--- NOTE | 2024-05-20 09:34 | P.PCN ---
Date of Procedure: 05/20/24 Description of Procedure: Procedure: Sacroiliac joint injection left Preoperative diagnosis: Sacroiliitis Postoperative diagnosis: Sacroiliitis Imaging: Fluoroscopy was used, images where saved to the medical record Complications: none ANESTHESIA: Patient re-evaluated prior to sedation given. local only Description of the procedure: procedure risk and benefits discussed with the patient, including but not limited, risk of infection and bleeding, and allergic reaction to the medication and incomplete pain relief. Patient agreed and signed consent. Patient was taken to the room and placed in a prone position. Chlorhexidine was used to cleanse the skin. LEFT: Under sterile conditions patient skin was anesthetized 1% lidocaine. Subcutaneous tissues were also anesthetized with a total 5 mL of 1% lidocaine. After that, a 22-gauge spinal needle was advanced through the anesthetized location under fluoroscopic guidance. Needle was advanced into the inferior portion of the sacroiliac joint. IV contrast was used to confirm spread within the joint. After adequate spread was achieved, 2.5 ML's of 0.5% ropivacaine with 20 mg of depomedrol was injected into the joint. Patient tolerated the procedure well. Sent to the recovery room in stable condition. Patient will follow up as directed.
[2024-05-20] MEDS ORDERED: IOPAMIDOL M200 10 ML VIAL ONE (09:45)
[2024-05-20] MEDS ORDERED: methylPREDNISolone ACETATE 40 MG/ML 1 ML VIAL ONE (09:45)
[2024-05-20] MEDS ORDERED: ROPIVACAINE 5MG/ML 20ML VIAL ONE (09:45)
[2024-05-20 09:56] VITALS: RESP 16
--- NOTE | 2024-05-20 10:18 | FL ---
Fluoroscopy History: M47.816 LUMBAR SPOND[address]OSIS Lum[address] Sp[address] Dr Garcia Fl time - 3.2 sec Dap- [id number] mGym2
[2024-05-20 10:22] VITALS: BP 127/70; PULSE 49
== END 2024-05-20 10:33 | disposition home or self-care (01) ==
LOC: ORPAIN 08:25
PROVIDERS: ATTEND Hospitalist
DX: M46.1 Sacroiliitis, not elsewhere classified (principal); M47.816 Spondylosis without myelopathy or radiculopathy, lumbar region; Z88.8 Allergy status to other drugs, medicaments and biological substances
CPT/HCPCS: 27096; Q9966; J2795; J1010

== ENCOUNTER → 2024-06-12 | Outpatient (CLI) | payer OTHER | LOC: PNWHC3 09:00 | PROVIDERS: ATTEND Specialist | DX: M46.1 Sacroiliitis, not elsewhere classified | CPT/HCPCS: 99211 ==

== ENCOUNTER 2024-06-26 11:50 | Day surgery (SDC) | payer OTHER ==
[2024-06-26 13:02] VITALS: TEMP 97
[2024-06-26] MEDS ORDERED: IOPAMIDOL M200 10 ML VIAL ONE (13:47)
[2024-06-26] MEDS ORDERED: methylPREDNISolone ACETATE 80 MG/ML 1 ML VIAL ONE (13:47)
--- NOTE | 2024-06-26 13:59 | P.PCN ---
Date of Procedure: 06/26/24 Procedure(s) Performed: PREOPERATIVE DIAGNOSIS: 1-lumbar degenerative disc disease. 2-lumbar spondylosis with lumbar facet arthropathy without myelopathy POSTOPERATIVE DIAGNOSIS: 1-lumbar degenerative disc disease. 2-lumbar spondylosis with facet arthropathy without myelopathy PROCEDURE 1. Transforaminal epidural steroid injection under fluoroscopic guidance at bilateral L5-S1 level. (Fluoroscopy images stored on file in the radiology Department ) 2. Lumbar epidurogram . ANESTHESIA: Local with 1% lidocaine 3 ml. EBL: Minimal PROCEDURE INDICATION: The patient with low back pain and radiculopathy symptoms unresponsive to conservative treatment. PROCEDURE DESCRIPTION / TECHNIQUE: The patient was seen and identified in the preoperative area. Risks, benefits, complications, and alternatives were discussed with the patient. The patient agreed to proceed with the procedure and signed the consent. IV was started, and vital signs were stable. Patient was taken to the OR and time out was completed. The patient was placed in the prone position on procedure table and a pillow was placed under the abdomen to reduce lumbar lordosis. The lumbosacral area was prepped and draped in the usual sterile fashion. Critical pause was taken. Vital signs were closely monitored during the procedure. Using oblique fluoroscopy, the chin of the ``Eliazar dog at right L5-S1 level was identified, and the skin and deeper tissues just below was localized with 1% lidocaine. Subsequently, a 22-gauge 3.5-inch spinal needle was advanced under a tunneled view fluoroscopic guidance just underneath the chin of the `Erickay dog at the right L5-S1 Under lateral fluoroscopy, the needle was then advanced to the posterior border of the interforaminal space. After negative aspiration of CSF and blood and with no paresthesias, 1 mL Isovue 200 contrast dye was injected excellent epidurogram and outlining of the nerve root Subsequently, 3 mL of block solution containing 40 mg Depo-Medrol and 2 mL of 0.9% normal saline PF was injected. Needle was removed and the same procedure was repeated at the left L5-S1 level. At the end of the procedure, skin was cleansed, and bandages were applied. COMPLICATIONS:none DISPOSITION / PLANS: The patient was placed in a supine position and transferred to the recovery area in a stable condition for observation. There was no evidence of lower extremity motor or sensory deficit after the procedure. Patient was discharged from the recovery room after meeting discharge criteria. Home discharge instructions were given to the patient by the staff. The patient was reexamined prior to discharge.
[2024-06-26 14:15] VITALS: PULSE 49; RESP 16
[2024-06-26 14:21] VITALS: BP 118/68
== END 2024-06-26 14:34 | disposition home or self-care (01) ==
LOC: ORPAIN 11:50
PROVIDERS: ATTEND Specialist
DX: M47.26 Other spondylosis with radiculopathy, lumbar region (principal); M51.16 Intervertebral disc disorders with radiculopathy, lumbar region

== ENCOUNTER → 2024-07-15 | Outpatient (CLI) | payer OTHER ==
--- NOTE | 2024-07-16 14:17 | MR ---
EXAMINATION TYPE: MR pancreas wo/w con DATE OF EXAM: 07/15/2024 3:14 PM CLINICAL INDICATION: Male, 59 years old with history of K86.2 CYST OF PANCREAS; PHH, pancreatic cyst COMPARISON: 02/03/2016 TECHNIQUE: Multiplanar multi-sequence imaging was performed without contrast. Post contrast imaging was performed. Post IV contrast subtraction images were also submitted for review. IV Contrast: 11 cc Gadavist FINDINGS: LOWER CHEST: No gross irregularity. ABDOMEN Liver: No evidence for hepatic steatosis or cirrhosis. Signal dropout on chemical shift in phase imag ing. High T2 signal cyst in the right hepatic lobe. Gallbladder and Bile ducts: No evidence for ductal dilation, or biliary stricture or evidence of chol edocholithiasis. The gallbladder is within normal limits. Pancreas: Tiny cyst in the pancreatic tail measuring up to 9 mm and 7 mm on prior. No ductal dilation . No evidence for solid mass. Spleen: Normal for size. Signal dropout on chemical shift in phase imaging. Adrenal glands: Unremarkable. Kidneys: High T1/T2 signal cysts in the left kidney measuring up to 29 mm in the right kidney measuri ng up to 26 mm. Stomach and Bowel: No evidence for bowel wall thickening or evidence for obstruction. Retroperitoneum/Peritoneum: No evidence of pneumoperitoneum or free fluid. Vasculature: No aortic aneurysm. Musculoskeletal: The osseous structures appear intact. Multilevel degeneration changes spine with gracie nt space narrowing osteophyte formation. Lymph Nodes: No gross evidence for lymphadenopathy. Abdominal wall: Unremarkable. IMPRESSION: 1. Pancreatic tail cystic lesion possibly representing sequela of prior pancreatitis versus side bra nch intraductal mucinous neoplasm versus other cystic neoplasms. Findings no measuring 9 mm previousl y 7 mm. Differences could be due to slice selection. Given this is not significantly changed from 201 6, finding likely benign. 2. Simple appearing left renal cyst which is decreased in size from prior. 3. Tiny hepatic cyst present. 4. Iron deposition suggested in the liver and spleen. r [facility], , 07/16/2024 2:15 PM
== END | disposition home or self-care (01) ==
LOC: RADMRIMAIN 13:25
PROVIDERS: ATTEND Internal Medicine Gastroenterology
DX: K86.2 Cyst of pancreas
CPT/HCPCS: 74183

== ENCOUNTER → 2024-07-17 | Outpatient (CLI) | payer OTHER ==
--- NOTE | 2024-07-17 10:41 | XR ---
EXAMINATION TYPE: XR lumbar spine 2 or 3V DATE OF EXAM: 07/17/2024 COMPARISON: None HISTORY: Radiculopathy low back pain history of fracture TECHNIQUE: 3 view lumbar spine FINDINGS: Scoliosis is present with the convexity to the right centered at L3. Spondylosis is present . There are 5 lumbar-type vertebral bodies. Pedicles are intact. Vacuum disc phenomenon is present at L 2-3 and L3-4. Posterior disc space narrowing is present L3-4. Mild disc narrowing is present L4-5 and L5-S1. More moderate loss of disc height is present L2-3. IMPRESSION: 1. Degenerative disc changes greatest at L2-3. 2. Spondylosis and scoliosis. [facility], , 07/17/2024 10:38 AM
== END | disposition home or self-care (01) ==
LOC: RADXRMAIN 10:03
PROVIDERS: ATTEND Specialist
DX: M54.16 Radiculopathy, lumbar region
CPT/HCPCS: 72100

== ENCOUNTER → 2024-07-17 | Outpatient (CLI) | payer OTHER ==
[2024-07-17 09:39] VITALS: BP 107/68; PULSE 47; RESP 16
--- NOTE | 2024-07-17 13:25 | P.PAINPG ---
PQRS Measure Charge Sheet Comment: A 59 yr old male with a history of severe and chronic LBP secondary to radiculopathy, spondylosis with facet arthropathy without myelopathy presents today for evaluation s/p BL TFESI L5-S1 #2. Pt states he experienced 60 % pain relief x 3 wks s/p procedure. Pt states pain level is provoked at 6 /10 in inten sity, constant, localized in the lower lumbar spine, predominantly axial, achy in character w occasional shooting pain towards the BL hips. Pain is provoked by sitting for periods > 30 min. Pain is alleviated by PT x 5 wks in Nov 2022, chiropractic treatments semi monthly x 4 mo w last visit 1 m ago, ice, medications, topical, repositioning and sitting all with minimal relief. Interventional procedures include REBEL L1-L2 x2, BL SI x1, BL TFESI L4-L5 x2 (May 2024), BL RFA L3-L5 (February 2024) Patient is currently on Ibu, Tyl, Tramadol Patient denies any side effects of the medication(s), denies excessive drowsiness or sleepiness, denies suicidal ideation and reports that the current pain medication is helping to control the pain and improve activities of daily living. Patient denies any motor or sensory deficits. Patient denies any fever or night sweats, denies any change in the bowel movements or urination. Physical Examination: -Constitutional: Cooperative. Not in acute distress . - Neurologic: Cranial nerve II to XII intact. No focal neurological deficits. - Psychatric: Alert & oriented x 3. Matching mood & appropriate affect. Judgment and insight intact. - Musculoskeletal: Cervical spine: Muscle bulk/ tone/ strength in the bilateral upper extremities normal Vertebral body tenderness to palpation over Spurling test positive Distraction test positive Facet loading test positive TTP Thoracic spine Muscle bulk / tone/ strength in the bilateral paraspinal muscles normal Vertebral body tender to palpation over Facet loading test positive TTP Lumbar spine: Motor bulk/ tone/ strength lower extremities , thigh and legs : 5/5 Deep tendon reflexes : Normal Knee Jerk. Normal Ankle Jerk . Vertebral body tenderness to palpation over L4 Maciel Test positive L4-L5 Lumbar Facet Loading Test positive BL L4-L5, L5-S1 Straight Leg Raise: positive at 30 degrees right side/ left side Gaenslen's Test positive Sacral spine : Severe tenderness over the Sacroiliac joint: right side / left side Range of motion: Flexion of the lumbar spine <60 degrees Range of motion: Extension of the lumbar spine <20 degrees Gaenslen's Test positive right side > left side Marcelina test: positive right side > left side Thigh Thrust Test positive right side / left side Sacral Thrust Test positive right side > left side Imaging: MRI noncontrast of BL hips from 06/28/22 reviewed MRI noncontrast of lumbar spine from 06/28/22 reviewed Assessment and plan: Chronic LBP secondary to lumbar radiculopathy, spondylosis with facet arthropathy without myelopathy, L Sacroiliitis Recommendation of lumbar x ray M54.16 . [place] 7.5/325mg #18 Use, side effects, adverse reactions, safe storage discussed. Pt acknowledged understanding. All questions answered. I have spent less than 30 minutes on patient care today. Dr Calderon was available by phone for the evaluation of this patient. The time was used to review the medical records including relevant urine studies and Prescription history (MAPs), review of the available imaging, evaluation and examination of the patient, coordination of care with the medical staff and if applicable referring physicians, as well as creation of the medical record - Pain Location Bilateral Hip Pharmacological Interventions: Epidural, PRN Medication PQRS Narrative: Smoking Status Never smoker Hx Alcohol Use (MH) No Home Medications: Ambulatory Orders Multivitamin [Men's Multi-Vitamin] 1 tab PO QAM 01/17/16 Ibuprofen [Motrin] 800 mg PO DAILY PRN 02/04/16 Bisoprolol [Zebeta] 5 mg PO QAM 11/23/23 Celecoxib [CeleBREX] 200 mg PO BID 11/23/23 Losartan [Cozaar] 12.5 mg PO QAM 11/23/23 Rosuvastatin [Crestor] 10 mg PO QAM 11/23/23 Sertraline [Zoloft] 25 mg PO HS 11/23/23 traZODone HCL 200 mg PO HS 11/23/23 Folic Acid 1 mg PO DAILY 03/14/24 Tamsulosin [Flomax] 0.4 mg PO DAILY 03/14/24 Aspirin 81 mg PO DAILY 06/25/24 HYDROcodone/APAP 7.5-325MG [[place] 7.5-325] 1 tab PO Q4H PRN 3 Days #18 tab 07/17/24 Controlled Substance Measures - Controlled Substance Measures Is patient prescribed a controlled substance at discharge?: Yes When asked, does pt state using other controlled substances?: Yes If prescribed controlled substance>3 days was MAPS reviewed?: Prescribed <3 Days
== END ==
LOC: PNWHC3 09:04
PROVIDERS: ATTEND Specialist
DX: M54.16 Radiculopathy, lumbar region
CPT/HCPCS: 99211

== ENCOUNTER → 2024-07-21 | Outpatient (CLI) | payer OTHER ==
--- NOTE | 2024-07-21 21:43 | MR ---
EXAMINATION TYPE: MR lumbar spine wo con DATE OF EXAM: 07/21/2024 COMPARISON: None HISTORY: low back pain that radiates down legs, causing tingling and numbness TECHNIQUE: Multiplanar, multisequence images of the lumbar spine were acquired without IV contrast. Findings: The lumbar vertebral segments are normal in height and alignment and there is no fracture or subluxat ion. There is moderate disc space narrowing, loss in signal intensity and circumferential disc bulge with spondylosis at the T12/L1 level and L2/L3 levels indicating moderate degenerative disc disease. At th e L1-2, L3-4, L4-5 and L5-S1 levels there is mild loss of signal intensity and circumferential disc b ulge indicating mild degenerative disc disease. There is no focal disc herniation or protrusion. At the T12/L1 level and at the L2/L3 level, secondary to disc bulge and mild thickening of ligamentum flavum, there is mild spinal stenosis. There is moderate neural foraminal stenosis at the T12/L1 level and L4-5 level on the right secondary to disc space narrowing and disc bulge. There is mild neural foraminal stenosis at the L2-3 and L3-4 levels on the left secondary to disc bulge. There is moderate to marked facet degeneration at the L3-4 and L4-5 levels and mild facet degeneratio n at the L3-4 level. The paraspinal soft tissues are unremarkable. The conus medullaris and cauda equina appear normal. IMPRESSION: 1. Multilevel degenerative disc disease moderate at the T12/L1 level and L2/L3 level. 2. No lumbar disc herniation. 3. Mild spinal stenosis at the T12/L1 level and L2-3 level. 4. Bilateral neural foraminal stenosis as described above. 5. Marked facet degeneration lower lumbar spine as described above. [facility], Workstation: AC, 07/21/2024 9:41 PM
== END | disposition home or self-care (01) ==
LOC: RADMRIMAIN 18:02
PROVIDERS: ATTEND Specialist
DX: M54.16 Radiculopathy, lumbar region
CPT/HCPCS: 72148

== ENCOUNTER → 2024-08-14 | Outpatient (CLI) | payer OTHER ==
[2024-08-14 09:37] VITALS: BP 136/87; PULSE 82; RESP 16; TEMP 97.1
--- NOTE | 2024-08-18 08:12 | P.PAINPG ---
PQRS Measure Charge Sheet Comment: A 59 yr old male with a history of severe and chronic LBP secondary to radiculopathy, spondylosis with facet arthropathy without myelopathy presents today for evaluation. Pt states pain level is provoked at 6 /10 in intensity, constant, localized in the lower lumbar spine, predominantly axial, achy in character w occasional shooting pain towards the BL hips, buttocks and LEs. Pain is provoked by over activity. Pain is alleviated by PT x 5 wks in Nov 2022, chiropractic treatments semi monthly x 4 mo which ended in May 2024, physician guided stretches daily since May 2024, ice, medications, topical, repositioning and sitting all with minimal relief. Interventional procedures include REBEL L1-L2 x2, BL SI x1, BL TFESI L4-L5 x2 (May 2024), BL RFA L3-L5 (February 2024) Patient is currently on Ibu, Tyl, Tramadol Patient denies any side effects of the medication(s), denies excessive drowsiness or sleepiness, denies suicidal ideation and reports that the current pain medication is helping to control the pain and improve activities of daily living. Patient denies any motor or sensory deficits. Patient denies any fever or night sweats, denies any change in the bowel movements or urination. Physical Examination: -Constitutional: Cooperative. Not in acute distress . - Neurologic: Cranial nerve II to XII intact. No focal neurological deficits. - Psychatric: Alert & oriented x 3. Matching mood & appropriate affect. Judgment and insight intact. - Musculoskeletal: Cervical spine: Muscle bulk/ tone/ strength in the bilateral upper extremities normal Vertebral body tenderness to palpation over Spurling test positive Distraction test positive Facet loading test positive TTP Thoracic spine Muscle bulk / tone/ strength in the bilateral paraspinal muscles normal Vertebral body tender to palpation over Facet loading test positive TTP Lumbar spine: Motor bulk/ tone/ strength lower extremities , thigh and legs : 5/5 Deep tendon reflexes : Normal Knee Jerk. Normal Ankle Jerk . Vertebral body tenderness to palpation over L2 Maciel Test positive L2-L3 Lumbar Facet Loading Test positive BL L4-L5, L5-S1 Straight Leg Raise: positive at 30 degrees right side/ left side Gaenslen's Test positive Sacral spine : Severe tenderness over the Sacroiliac joint: right side / left side Range of motion: Flexion of the lumbar spine <60 degrees Range of motion: Extension of the lumbar spine <20 degrees Gaenslen's Test positive right side > left side Marcelina test: positive right side > left side Thigh Thrust Test positive right side / left side Sacral Thrust Test positive right side > left side Imaging: MRI non contrast of BL hips from 06/28/22 reviewed MRI non contrast of lumbar spine from 07/21/24 reviewed Assessment and plan: Chronic LBP secondary to lumbar radiculopathy, spondylosis with facet arthropathy without myelopathy, L Sacroiliitis Recommendation of REBEL L2-L3 #1. Risks, benefits of procedure discussed and pt verbalized understanding. Protocol for discontinuation/ continuation of medications brianne procedure discussed. Minimal anesthesia including Fentanyl and Versed if clinically indicated. Pt acknowledged understanding. All questions answered. I have spent less than 30 minutes on patient care today. Dr Calderon was available by phone for the evaluation of this patient. The time was used to review the medical records including relevant urine studies and Prescription history (MAPs), review of the available imaging, evaluation and examination of the patient, coordination of care with the medical staff and if applicable referring physicians, as well as creation of the medical record PQRS Narrative: Smoking Status Never smoker Hx Alcohol Use (MH) No Home Medications: Ambulatory Orders Multivitamin [Men's Multi-Vitamin] 1 tab PO QAM 01/17/16 Ibuprofen [Motrin] 800 mg PO DAILY PRN 02/04/16 Bisoprolol [Zebeta] 5 mg PO QAM 11/23/23 Celecoxib [CeleBREX] 200 mg PO BID 11/23/23 Losartan [Cozaar] 12.5 mg PO QAM 11/23/23 Rosuvastatin [Crestor] 10 mg PO QAM 11/23/23 Sertraline [Zoloft] 25 mg PO HS 11/23/23 traZODone HCL 200 mg PO HS 11/23/23 Folic Acid 1 mg PO DAILY 03/14/24 Tamsulosin [Flomax] 0.4 mg PO DAILY 03/14/24 Aspirin 81 mg PO DAILY 06/25/24 HYDROcodone/APAP 7.5-325MG [[place] 7.5-325] 1 tab PO Q4H PRN 3 Days #18 tab 07/17/24 Controlled Substance Measures - Controlled Substance Measures Is patient prescribed a controlled substance at discharge?: No
== END ==
LOC: PNWHC3 08:55
PROVIDERS: ATTEND Specialist
DX: M47.816 Spondylosis without myelopathy or radiculopathy, lumbar region
CPT/HCPCS: 99211

== ENCOUNTER 2024-08-22 09:55 | Day surgery (SDC) | payer OTHER ==
[2024-08-22 10:19] VITALS: TEMP 97.3
[2024-08-22] MEDS ORDERED: IOPAMIDOL M200 10 ML VIAL ONE (10:52)
[2024-08-22] MEDS ORDERED: methylPREDNISolone ACETATE 80 MG/ML 1 ML VIAL ONE (10:52)
--- NOTE | 2024-08-22 11:09 | P.PCN ---
Date of Procedure: 08/22/24 Procedure(s) Performed: PREOPERATIVE DIAGNOSIS: 1- Lumbar Degenerative Disc Diseases 2-Lumbar spondylosis with Facet arthropathy without myelopathy. 3-lumbar radiculopathy POSTOPERATIVE DIAGNOSIS: 1-lumbar degenerative disc disease. 2-lumbar spondylosis with facet arthropathy without myelopathy. 3-lumbar radiculopathy. PROCEDURE 1. Lumbar epidural steroid injection under fluoroscopic guidance at the L2-3 level. (Fluoroscopy imaging was available in radiology department) 2. Lumbar epidurogram. ANESTHESIA: Lidocaine 1% 3 and then only. EBL: Minimal PROCEDURE INDICATION: The patient with low back pain and radiculitis symptoms unresponsive to conservative treatment. Fluoroscopy was used to optimize visualization of the needle placement and to maximize safety. PROCEDURE DESCRIPTION / TECHNIQUE: The patient was seen and identified in the preoperative area. Risks, benefits, complications including but not limited to infections ,bleeding ,allergic reaction to the medications ,nerve damage and not complete pain releife , and alternatives were discussed with the patient. The patient agreed to proceed with the procedure and signed the consent, and vital signs were stable. Patient was taken to the OR and time out was completed. The patient was placed in the prone position on procedure table and a pillow was placed under the abdomen to reduce lumbar lordosis. The lumbosacral area was prepped and draped in the usual sterile fashion.ere closely monitored during the procedure. Vital signs was monitered during the entire procedure. Using anterior-posterior fluoroscopy, the L2-3 interlaminar space was identified and the skin over this site was marked and then infiltrated with 1% lidocaine subcutaneously. Subsequently, a 20-gauge Tuohy epidural needle was inserted and advanced toward the epidural space using the ``Loss of resistance technique and guided by AP and lateral fluoroscopy. The correct needle position in the epidural space was verified with the injection of 2 mL of the water soluble contrast dye Isovue 200 contrast and observing an excellent epidurogram with t he epidural spread of the dye, after negative aspiration for blood and CSF and in the absence of paresthesias. Again after negative aspiration, a 6 ml mixture containing 80 mg of Depo-medrol ( Preservetive Free ), and 2 ml of preservative free Normal Saline, and 2 ml of preservative free lidocaine 1% solution was injected and a washout of epidurogram was seen. Needle was withdrawn intact, skin was cleansed, and bandages were applied. COMPLICATIONS: None DISPOSITION / PLANS: The patient was placed in a supine position and transferred to the recovery area in a stable condition for observation. There was no evidence of lower extremity motor or sensory deficit after the procedure. Patient was discharged from the recovery room after meeting discharge criteria. Home discharge instructions were given to the patient by the staff. The patient was reexamined prior to discharge. The patient will schedule a follow up in the clinic in 2-4 weeks.
--- NOTE | 2024-08-22 11:17 | FL ---
Fluoroscopy History: Lumbar Epid Inj [facility] pain [facility] fl time 9.3 secs dap [id number] [facility], , 08/22/2024 11:15 AM
[2024-08-22 11:31] VITALS: BP 143/81; PULSE 57; RESP 17
== END 2024-08-22 11:29 | disposition home or self-care (01) ==
LOC: ORPAIN 09:55
PROVIDERS: ATTEND Specialist
DX: M51.16 Intervertebral disc disorders with radiculopathy, lumbar region (principal); M47.26 Other spondylosis with radiculopathy, lumbar region
CPT/HCPCS: 62323; Q9966; J1010

== ENCOUNTER → 2024-09-11 | Outpatient (CLI) | payer OTHER ==
[2024-09-11 10:07] VITALS: BP 148/66; PULSE 59; RESP 16; TEMP 96.9
--- NOTE | 2024-09-11 14:34 | P.PAINPG ---
PQRS Measure Charge Sheet Comment: A 59 yr old male with a history of severe and chronic LBP secondary to radiculopathy, spondylosis with facet arthropathy without myelopathy presents today for evaluation s/p REBEL L2-L3 #1. Pt states he experienced >60 % pain relief x 2 wks s/p procedure. Pt states pain level is provoked at 9 /10 in intensity, constant, localized in the lower lumbar spine, predominantly axial, achy in character w occasional shooting pain towards the BL hips, buttocks and LEs. Pain is provoked by over activity. Pain is alleviated by PT x 5 wks in Nov 2022, chiropractic treatments semi monthly x 4 mo which ended in May 2024, physician guided stretches daily since May 2024, ice, medications, topical, repositioning and sitting all with minimal relief. Interventional procedures include REBEL L1-L2 x2, BL SI x1, BL TFESI L4-L5 x2 (May 2024), BL RFA L3-L5 (February 2024), REBEL L2-L3 x1 (Jul 2024) Patient is currently on Ibu, Tyl, Tramadol Patient denies any side effects of the medication(s), denies excessive drowsiness or sleepiness, denies suicidal ideation and reports that the current pain medication is helping to control the pain and improve activities of daily living. Patient denies any motor or sensory deficits. Patient denies any fever or night sweats, denies any change in the bowel movements or urination. Physical Examination: -Constitutional: Cooperative. Not in acute distress . - Neurologic: Cranial nerve II to XII intact. No focal neurological deficits. - Psychatric: Alert & oriented x 3. Matching mood & appropriate affect. Judgment and insight intact. - Musculoskeletal: Cervical spine: Muscle bulk/ tone/ strength in the bilateral upper extremities normal Vertebral body tenderness to palpation over Spurling test positive Distraction test positive Facet loading test positive TTP Thoracic spine Muscle bulk / tone/ strength in the bilateral paraspinal muscles normal Vertebral body tender to palpation over Facet loading test positive TTP Lumbar spine: Motor bulk/ tone/ strength lower extremities , thigh and legs : 5/5 Deep tendon reflexes : Normal Knee Jerk. Normal Ankle Jerk . Vertebral body tenderness to palpation over L5 Maciel Test positive BL L5-S1 Lumbar Facet Loading Test positive BL L4-L5, L5-S1 Straight Leg Raise: positive at 30 degrees right side/ left side Gaenslen's Test positive Sacral spine : Severe tenderness over the Sacroiliac joint: right side / left side Range of motion: Flexion of the lumbar spine <60 degrees Range of motion: Extension of the lumbar spine <20 degrees Gaenslen's Test positive right side > left side Marcelina test: positive right side > left side Thigh Thrust Test positive right side / left side Sacral Thrust Test positive right side > left side Imaging: MRI non contrast of BL hips from 06/28/22 reviewed MRI non contrast of lumbar spine from 07/21/24 reviewed Assessment and plan: Chronic LBP secondary to lumbar radiculopathy, spondylosis with facet arthropathy without myelopathy, L Sacroiliitis Recommendation of REBEL L5-S1 #1. Risks, benefits of procedure discussed and pt verbalized understanding. Protocol for discontinuation/ continuation of medications brianne procedure discussed. Pt acknowledged understanding. All questions answered. I have spent less than 30 minutes on patient care today. Dr Calderon was available by phone for the evaluation of this patient. The time was used to review the medical records including relevant urine studies and Prescription history (MAPs), review of the available imaging, evaluation and examination of the patient, coordination of care with the medical staff and if applicable referring physicians, as well as creation of the medical record PQRS Narrative: Smoking Status Never smoker Hx Alcohol Use (MH) No Home Medications: Ambulatory Orders Multivitamin [Men's Multi-Vitamin] 1 tab PO QAM 01/17/16 Ibuprofen [Motrin] 800 mg PO DAILY PRN 02/04/16 Bisoprolol [Zebeta] 5 mg PO QAM 11/23/23 Celecoxib [CeleBREX] 200 mg PO BID 11/23/23 Losartan [Cozaar] 12.5 mg PO QAM 11/23/23 Rosuvastatin [Crestor] 10 mg PO QAM 11/23/23 traZODone HCL 200 mg PO HS 11/23/23 Folic Acid 1 mg PO DAILY 03/14/24 Tamsulosin [Flomax] 0.4 mg PO DAILY 03/14/24 Aspirin 81 mg PO DAILY 06/25/24 HYDROcodone/APAP 7.5-325MG [[place] 7.5-325] 1 tab PO Q4H PRN 3 Days #18 tab 07/17/24 Controlled Substance Measures - Controlled Substance Measures Is patient prescribed a controlled substance at discharge?: No
== END ==
LOC: PNWHC3 09:39
PROVIDERS: ATTEND Specialist
DX: M47.26 Other spondylosis with radiculopathy, lumbar region (principal); M46.1 Sacroiliitis, not elsewhere classified; Z88.8 Allergy status to other drugs, medicaments and biological substances
CPT/HCPCS: 99211

== ENCOUNTER 2024-09-23 13:33 | Day surgery (SDC) | payer OTHER ==
[2024-09-23 14:02] VITALS: PULSE 59; RESP 16; TEMP 97
[2024-09-23] MEDS ORDERED: methylPREDNISolone ACETATE 80 MG/ML 1 ML VIAL ONE (14:52)
[2024-09-23] MEDS ORDERED: IOPAMIDOL M200 10 ML VIAL ONE (14:52)
--- NOTE | 2024-09-23 15:04 | P.PCN ---
Description of Procedure: PREOPERATIVE DIAGNOSIS: 1- Lumbar Degenerative Disc Diseases 2-Lumbar spondylosis with Facet arthropathy without myelopathy. 3-lumbar spinal stenosis POSTOPERATIVE DIAGNOSIS: 1-lumbar degenerative disc disease. 2-lumbar spondylosis with facet arthropathy without myelopathy. 3-lumbar spinal stenosis. PROCEDURE Injection of radio contrast material into L5-S1 interspace, interpretation of epidurogram, injection of steroid at L5-S1 epidural space under fluoroscopic guidance. ANESTHESIA: Lidocaine 1% subcutaneously. In OR continuous pulse ox, EKG, blood pressure and verbal communication was maintained with the patient. EBL: Minimal PROCEDURE INDICATION: Before the procedure were discussed with the patient detailed procedure, alternatives, complications including infection, bleeding, nerve damage, paralysis all of which could be permanent. Patient understands and all questions were answered. PROCEDURE DESCRIPTION : After getting consent, patient in OR in prone position. Back was prepped with chlorhexidine and draped in sterile fashion. After injecting 10 mL of 1% lidocaine subcutaneously, a 20-gauge Tuohy needle was introduced at L5-S1 interspace with loss of resistance technique using a syringe filled with air. Negative CSF, negative blood, negative paresthesia. Needle position was confirmed with AP and lateral view of the fluoroscope. After repeat negative aspiration 2 mL of Omnipaque 200 water soluble contrast was injected. Contrast was noted in the epidural space. No contrast was noted into intrathecal or intravascular space. After repeat negative aspiration 6 mL solution was injected intermittently which consists of 5 mL of preservative-free normal saline mixed with 1 mL of 80 mg Depo-Medrol. Needle was withdrawn intact. Skin was cleansed and Band-Aids was applied. DISPOSITION / PLANS: The patient tolerated the procedure well. No complication. The patient was placed in a supine position and transferred to the recovery area in a stable condition for observation. There was no evidence of lower extremity motor or sensory deficit after the procedure. Patient was discharged from the recovery room after meeting discharge criteria. Home discharge instructions were given to the patient by the staff. The patient was reexamined prior to discharge. The patient will schedule a follow up in the clinic in 2-4 weeks.
[2024-09-23 15:08] VITALS: BP 145/79
--- NOTE | 2024-09-23 17:03 | FL ---
EXAMINATION TYPE: FL guided pain mgmt statistic DATE OF EXAM: 09/23/2024 FLUOROSCOPY LESI IN PAIN MANAGEMENT. PT EXPERIENCING A LOT OF LOW BACK PAIN FL TIME 13.2 SECS DAP [id number] 2 images are provided. [facility], , 09/23/2024 5:01 PM
== END 2024-09-23 15:20 ==
LOC: ORPAIN 13:33
PROVIDERS: ATTEND Pain Medicine Interventional Pain Medicine
DX: M51.369 Other intervertebral disc degeneration, lumbar region without mention of lumbar back pain or lower extremity pain (principal); M47.816 Spondylosis without myelopathy or radiculopathy, lumbar region; M48.061 Spinal stenosis, lumbar region without neurogenic claudication
CPT/HCPCS: 62323

== ENCOUNTER → 2024-10-20 | Outpatient (CLI) | payer OTHER ==
[2024-10-20 10:17] VITALS: BP 137/79; PULSE 60; RESP 16; TEMP 96.8
--- NOTE | 2024-10-20 14:53 | P.PAINPG ---
PQRS Measure Charge Sheet Comment: A 59 yr old male with a history of severe and chronic LBP secondary to radiculopathy, spondylosis with facet arthropathy without myelopathy presents today for evaluation s/p REBEL L5-S1 #1. Pt states he experienced 70 % pain relief x 3-4 wks s/p procedure. Pt underwent a BL RFA L4-L5/ L5-S1 in February 2024 where he experienced > 70% pain relief x 6 mo s/p procedure. Pt states pain level is provoked at 6 /10 in intensity, constant, localized in the lower lumbar spine, predominantly axial, dull in character w occasional shooting pain towards the back of the BLEs. Pain is provoked by over activity. Pain is alleviated by PT x 5 wks in Nov 2022, chiropractic treatments semi monthly x 4 mo which ended in May 2024, physician guided stretches daily since May 2024, ice, medications, topical, repositioning and sitting all with minimal relief. Interventional procedures include REBEL L1-L2 x2, BL SI x1, BL TFESI L4-L5 x2 (May 2024), BL RFA L3-L5 (February 2024), REBEL L2-L3 x1 (Jul 2024), REBEL L5-S1 x1 (Aug 2024) Patient is currently on Ibu, Tyl, Tramadol Patient denies any side effects of the medication(s), denies excessive drowsiness or sleepiness, denies suicidal ideation and reports that the current pain medication is helping to control the pain and improve activities of daily living. Patient denies any motor or sensory deficits. Patient denies any fever or night sweats, denies any change in the bowel movements or urination. Physical Examination: -Constitutional: Cooperative. Not in acute distress . - Neurologic: Cranial nerve II to XII intact. No focal neurological deficits. - Psychatric: Alert & oriented x 3. Matching mood & appropriate affect. Judgment and insight intact. - Musculoskeletal: Cervical spine: Muscle bulk/ tone/ strength in the bilateral upper extremities normal Vertebral body tenderness to palpation over Spurling test positive Distraction test positive Facet loading test positive TTP Thoracic spine Muscle bulk / tone/ strength in the bilateral paraspinal muscles normal Vertebral body tender to palpation over Facet loading test positive TTP Lumbar spine: Motor bulk/ tone/ strength lower extremities , thigh and legs : 5/5 Deep tendon reflexes : Normal Knee Jerk. Normal Ankle Jerk . Vertebral body tenderness to palpation over L5 Maciel Test positive BL L5-S1 Lumbar Facet Loading Test positive BL L4-L5, L5-S1 Straight Leg Raise: positive at 30 degrees right side/ left side Gaenslen's Test positive Sacral spine : Severe tenderness over the Sacroiliac joint: right side / left side Range of motion: Flexion of the lumbar spine <60 degrees Range of motion: Extension of the lumbar spine <20 degrees Gaenslen's Test positive right side > left side Marcelina test: positive right side > left side Thigh Thrust Test positive right side / left side Sacral Thrust Test positive right side > left side Imaging: MRI non contrast of BL hips from 06/28/22 reviewed MRI non contrast of lumbar spine from 07/21/24 reviewed Assessment and plan: Chronic LBP secondary to lumbar radiculopathy, spondylosis with facet arthropathy without myelopathy, L Sacroiliitis Recommendation of BL RFA L4-L5/ L5-S1. Risks, benefits of procedure discussed and pt verbalized understanding. Protocol for discontinuation/ continuation of medications brianne procedure discussed. Minimal anesthesia including Fentanyl and Versed if clinically indicated. Pt acknowledged understanding. All questions answered. I have spent less than 30 minutes on patient care today. Dr Calderon was available by phone for the evaluation of this patient. The time was used to review the medical records including relevant urine studies and Prescription history (MAPs), review of the available imaging, evaluation and examination of the patient, coordination of care with the medical staff and if applicable referring physicians, as well as creation of the medical record PQRS Narrative: Smoking Status Never smoker Hx Alcohol Use (MH) No Home Medications: Ambulatory Orders Multivitamin [Men's Multi-Vitamin] 1 tab PO QAM 01/17/16 Ibuprofen [Motrin] 800 mg PO DAILY PRN 02/04/16 Bisoprolol [Zebeta] 5 mg PO QAM 11/23/23 Celecoxib [CeleBREX] 200 mg PO BID 11/23/23 Losartan [Cozaar] 12.5 mg PO QAM 11/23/23 Rosuvastatin [Crestor] 10 mg PO QAM 11/23/23 traZODone HCL 150 mg PO HS 11/23/23 Folic Acid 1 mg PO DAILY 03/14/24 Tamsulosin [Flomax] 0.4 mg PO DAILY 03/14/24 Aspirin 81 mg PO DAILY 06/25/24 HYDROcodone/APAP 7.5-325MG [[place] 7.5-325] 1 tab PO Q4H PRN 3 Days #18 tab 07/17/24 Controlled Substance Measures - Controlled Substance Measures Is patient prescribed a controlled substance at discharge?: No
== END ==
LOC: PNWHC3 10:02
PROVIDERS: ATTEND Specialist
DX: M47.26 Other spondylosis with radiculopathy, lumbar region (principal); M46.1 Sacroiliitis, not elsewhere classified; Z88.8 Allergy status to other drugs, medicaments and biological substances
CPT/HCPCS: 99211

== ENCOUNTER 2024-11-06 06:58 | Day surgery (SDC) | payer OTHER ==
[2024-11-06] MEDS ORDERED: LACTATED RINGERS 1,000 ML IV SCH (07:24)
[2024-11-06 07:33] VITALS: TEMP 97.1
[2024-11-06] MEDS: IV FLUID CONTINUATION 250 ML IV ONE (07:33)
[2024-11-06] MEDS: SODIUM CHLORIDE 0.9% 250 ML IV ONE (07:35)
[2024-11-06] MEDS ORDERED: MIDAZOLAM 2 MG/2 ML VIAL ONE (08:20)
[2024-11-06] MEDS ORDERED: ROPIVACAINE 5MG/ML 20ML VIAL ONE (08:20)
[2024-11-06] MEDS ORDERED: fentaNYL (PF) 50 MCG/ML 2 ML AMP ONE (08:20)
[2024-11-06] MEDS ORDERED: TRIAMCINOLONE ACETONIDE 40 MG/ML 1 ML VIAL ONE (08:20)
--- NOTE | 2024-11-06 08:45 | P.PCN ---
Date of Procedure: 11/06/24 Procedure(s) Performed: PREOPERATIVE DIAGNOSIS: 1-Lumbar Spondylosis with Facet Arthropathy without myelopathy. 2- Lumber degenerative disc disease. POSTOPERATIVE DIAGNOSIS: 1- Lumbar Spondylosis with Facet Arthropathy without myelopathy. 2- Lumber degenerative disc disease. PROCEDURES : Bilateral Radiofrequency thermocoagulation, L3 , L4 ,L5 medial branch, with fluoro (fluoro images available in the radiology department) ( to denervate the facet joint at bilateral L4-5 ,and L5-S1 levels ). ANESTHESIA: Moderate sedation with intravenous versed 2 mg and fentaneyl 100 mcg,( sedation started at 0820, ended at 0841 ) EBL: Minimal PROCEDURE INDICATION: The patient with low back pain secondary to lumbar facet arthropathy who had more than 50% relief of her pain with previous diagnostic lumbar medial branch block with bupivacaine. PROCEDURE DESCRIPTION / TECHNIQUE: The patient was seen and identified in the preoperative area. Risks, benefits, complications, including but not limited to risk of infection ,bleeding , allergic reactions to the medications and no complete pain releife , and alternatives were discussed with the patient, the patient agreed to proceed with the procedure and signed the consent. IV was started. Vital signs remained stable throughout the procedure. Patient was taken to the OR and time out was completed. The patient was placed in the prone position on the procedure table. The lumber area was prepped and d raped in the usual sterile fashion. . Vital signs were closely monitored during the procedure .IV sedation was used during the procedure to decrease patients anxiety. Using AP and then oblique fluoroscopy, the ``eye of the Eliazar dog corresponding to the connection between the superior and transverse articular processes of right L3, L4, and L5 were identified, marked, and localized with 1% lidocaine. Subsequently, a 18 guage ( VENOM )100-mm radiofrequency cannula with a 10-mm active tip was advanced guided by fluoroscopy to each of the``eyes of the Eliazar dog at right L3, L4, and L5. Each site then underwent sensory testing at 50 Hz and 0 to 1 volt and motor testing at 2.5 Hz and 0 to 3 volt with local stimulation, but no radicular symptoms down the legs. Thereafter each sites underwent radiofrequency thermocoagulation at 80 degrees celsius for 90 seconds after injecting 0.5 ml of PF Ropivacaine 1ml, then after the thermocoagulation done , 1 ml of the block solution containing Kenalog 20 mg and 3 ml of Ropivacaine 0.5% was injected at the right L3 , L4 , and L5 , levels after negative aspiration of CSF and blood and with no paresthesias. Cannulas were retracted while injecting lidocaine 1% until the needle is out. The same procedure was repeated at the level of Left L3, L4, and L5 levels. At the end of the procedure, the skin was cleansed and bandages were applied. COMPLICATIONS: No acute complications. DISPOSITION / PLANS: The patient was placed in a supine position and transferred to the recovery area in a stable condition for observation and was discharged from the recovery room after meeting discharge criteria. Home discharge instructions given to the patient by the staff. The patient was reexamined prior to discharge. The patient will schedule a follow up in the clinic in 2-4 weeks.
--- NOTE | 2024-11-06 08:57 | FL ---
EXAMINATION TYPE: FL guided pain mgmt statistic DATE OF EXAM: 11/06/2024 CLINICAL HISTORY: Low back pain. TECHNIQUE: Fluoroscopy. COMPARISON: None. FINDINGS: Fluoroscopic guidance was provided during pain relief procedure performed by Dr. Calderon . A total of 27.4 seconds of fluoroscopic time was utilized during the procedure and 6 spot images a re acquired. Images acquired shows needle localization at multiple levels in the bilateral lower lum bar spine. IMPRESSION: As Above. [facility], , 11/06/2024 8:55 AM
[2024-11-06] MEDS: SODIUM CHLORIDE 0.9% 150 ML IV ONE (09:12)
[2024-11-06 09:18] VITALS: BP 118/70; PULSE 71; RESP 16
== END 2024-11-06 09:24 | disposition home or self-care (01) ==
LOC: ORPAIN 06:58
PROVIDERS: ATTEND Specialist
DX: M47.816 Spondylosis without myelopathy or radiculopathy, lumbar region (principal); M51.360 Other intervertebral disc degeneration, lumbar region with discogenic back pain only
CPT/HCPCS: 64635; 64636; J2250; J3301; J3010; J2795; 99152

== ENCOUNTER 2024-12-23 07:26 | Day surgery (SDC) | payer OTHER ==
[2024-12-23] MEDS ORDERED: LACTATED RINGERS 1,000 ML IV SCH (07:30)
[2024-12-23 08:02] VITALS: RESP 16; TEMP 96.8
[2024-12-23] MEDS ORDERED: ROPIVACAINE 5MG/ML 20ML VIAL ONE (08:09)
[2024-12-23] MEDS ORDERED: TRIAMCINOLONE ACETONIDE 40 MG/ML 1 ML VIAL ONE (08:09)
--- NOTE | 2024-12-23 08:24 | P.PCN ---
Date of Procedure: 12/23/24 Description of Procedure: Preoperative diagnosis: . Bilateral iliolumbar pain syndrome Postoperative diagnosis: . Bilateral iliolumbar pain syndrome Procedure: Bilateral iliolumbar ligament injection under fluoroscopy guidance EBL: None Anesthesia: 3 mL of 1% lidocaine Specimen removed: None Fluoroscopic image: Saved to electronic medical records Procedure indication: Patient had a history of chronic low back pain along with sacroiliac joint area, and posterior superior iliac spine area.. Patient tried conservative therapy, scheduled for diagnostic bilateral iliolumbar treatment injection for better pain relief. Procedure description: Patient was discussed regarding procedure in the preop holding area, risks benefits, complications, alternatives discussed with the patient. Patient agreed to proceed for the procedure. Using anteroposterior fluoroscopic view right side L4, L5 transverse process, and sacral alae identified. Area of iliolumbar ligament trajectory to corresponding side iliac crest identified using fluoroscopy. Then using a 25 G 3.5 inch spinal needle used advance in the trajectory of iliolumbar ligament area then after negative aspiration for blood, paresthesia, any other bodily fluids , after that in a fan-shaped manner 6 mL of block solution injected. The block solution containing 5 mL of 0.5% ropivacaine with 40 mg of Kenalog. Needle removed intact. Entire procedure repeated on the left side of iliolumbar ligament area. Skin cleaned, , and Band-Aid applied. Complications: None DISPOSITION / PLANS: The patient was placed in a supine position and transferred to the recovery area in a stable condition for observation. Patient was discharg ed from the recovery room after meeting discharge criteria. Home discharge instructions given to the patient by the staff. The patient was reexamined prior to discharge. The patient will schedule a follow up in the clinic in 4 weeks.
[2024-12-23 08:39] VITALS: BP 119/69; PULSE 58
--- NOTE | 2024-12-23 08:44 | FL ---
Fluoroscopy INDICATION: Pain FINDINGS: Fluoroscopy time: 6.9 seconds. Total dose area product (DAP) in uGy*m?, mGy*cm? (or similar): 0.14340 Images obtained: 5. Images document needle placement IMPRESSION: 1. Documentation of fluoroscopy. [facility], , 12/23/2024 8:42 AM
== END 2024-12-23 08:54 | disposition home or self-care (01) ==
LOC: ORPAIN 07:26
DX: G89.4 Chronic pain syndrome (principal); Z79.1 Long term (current) use of non-steroidal anti-inflammatories (NSAID); Z79.82 Long term (current) use of aspirin; Z79.899 Other long term (current) drug therapy; Z88.8 Allergy status to other drugs, medicaments and biological substances
CPT/HCPCS: 20550; J3301; J2795

== ENCOUNTER → 2025-01-12 | Outpatient (CLI) | payer OTHER ==
[2025-01-12 09:31] VITALS: BP 120/80; PULSE 54; RESP 18; TEMP 97.6
--- NOTE | 2025-01-12 15:14 | P.PAINPG ---
PQRS Measure Charge Sheet Comment: A 59 yr old male with a history of severe and chronic LBP secondary to radiculopathy, spondylosis with facet arthropathy without myelopathy presents today for evaluation s/p BL iliolumbar ligament injection #1. Pt states he experienced 80 % pain relief x 1 wks s/p procedure. Pt states pain level is provoked at 5-6 /10 in intensity, intermittent, localized in the lower lumbar spine, predominantly axial, dull in character w occasional shooting pain towards the R side of back. Pain is provoked by over activity. Pain is alleviated by PT x 5 wks in Nov 2022, chiropractic treatments semi monthly x 4 mo which ended in May 2024, physician guided stretches daily since May 2024, heat & ice, medications, topical, repositioning and sitting all with minimal relief. Interventional procedures include REBEL L1-L2 x2, BL SI x1, BL TFESI L4-L5 x2 (May 2024), BL RFA L3-L5 x2 (February 2024, Oct 2024), REBEL L2-L3 x1 (Jul 2024), REBEL L5-S1 x1 (Aug 2024) Patient is currently on Ibu, Tyl, Tramadol Patient denies any side effects of the medication(s), denies excessive drowsiness or sleepiness, denies suicidal ideation and reports that the current pain medication is helping to control the pain and improve activities of daily living. Patient denies any motor or sensory deficits. Patient denies any fever or night sweats, denies any change in the bowel movements or urination. Physical Examination: -Constitutional: Cooperative. Not in acute distress . - Neurologic: Cranial nerve II to XII intact. No focal neurological deficits. - Psychatric: Alert & oriented x 3. Matching mood & appropriate affect. Judgment and insight intact. - Musculoskeletal: Cervical spine: Muscle bulk/ tone/ strength in the bilateral upper extremities normal Vertebral body tenderness to palpation over Spurling test positive Distraction test positive Facet loading test positive TTP Thoracic spine Muscle bulk / tone/ strength in the bilateral paraspinal muscles normal Vertebral body tender to palpation over Facet loading test positive TTP Lumbar spine: Motor bulk/ tone/ strength lower extremities , thigh and legs : 5/5 Deep tendon reflexes : Normal Knee Jerk. Normal Ankle Jerk . Vertebral body tenderness to palpation over L5 Maciel Test positive R L4- L5, L5-S1 Lumbar Facet Loading Test positive BL L4-L5, L5-S1 Straight Leg Raise: positive at 30 degrees right side/ left side Gaenslen's Test positive Sacral spine : Severe tenderness over the Sacroiliac joint: right side / left side Range of motion: Flexion of the lumbar spine <60 degrees Range of motion: Extension of the lumbar spine <20 degrees Gaenslen's Test positive right side > left side Marcelina test: positive right side > left side Thigh Thrust Test positive right side / left side Sacral Thrust Test positive right side > left side Imaging: MRI non contrast of BL hips from 06/28/22 reviewed MRI non contrast of lumbar spine from 07/21/24 reviewed Assessment and plan: Chronic LBP secondary to lumbar radiculopathy, spondylosis with facet arthropathy without myelopathy, L Sacroiliitis Recommendation of R TFESI L4-L5, L5-S1 #3. Risks, benefits of procedure discussed and pt verbalized understanding. Protocol for discontinuation/ continuation of medications brianne procedure discussed. Pt acknowledged understanding. Second attempt to urge pt to follow up w Dr Swapna Vergara to explore additional treatment options. All questions answered. I have spent less than 30 minutes on patient care today. Dr Calderon was available by phone for the evaluation of this patient. The time was used to review the medical records including relevant urine studies and Prescription history (MAPs), review of the available imaging, evaluation and examination of the patient, coordination of care with the medical staff and if applicable referring physicians, as well as creation of the medical record PQRS Narrative: Smoking Status Never smoker Hx Alcohol Use (MH) No Home Medications: Ambulatory Orders Multivitamin [Men's Multi-Vitamin] 1 tab PO QAM 01/17/16 Ibuprofen [Motrin] 800 mg PO DAILY PRN 02/04/16 Bisoprolol [Zebeta] 5 mg PO QAM 11/23/23 Celecoxib [CeleBREX] 200 mg PO BID 11/23/23 Losartan [Cozaar] 12.5 mg PO QAM 11/23/23 Rosuvastatin [Crestor] 10 mg PO QAM 11/23/23 traZODone HCL 250 mg PO HS 11/23/23 Folic Acid 1 mg PO DAILY 03/14/24 Tamsulosin [Flomax] 0.4 mg PO DAILY 03/14/24 Aspirin 81 mg PO DAILY 06/25/24 HYDROcodone/APAP 7.5-325MG [[place] 7.5-325] 1 tab PO Q4H PRN 3 Days #18 tab 07/17/24 Controlled Substance Measures - Controlled Substance Measures Is patient prescribed a controlled substance at discharge?: No
== END ==
LOC: PNWHC3 08:57
PROVIDERS: ATTEND Specialist
DX: M47.26 Other spondylosis with radiculopathy, lumbar region (principal); M46.1 Sacroiliitis, not elsewhere classified; G89.29 Other chronic pain; Z88.8 Allergy status to other drugs, medicaments and biological substances
CPT/HCPCS: 99211

== ENCOUNTER 2025-02-03 10:33 | Day surgery (SDC) | payer OTHER ==
[2025-01-30 14:44] VITALS: BMI 33.3
[2025-02-03 11:05] VITALS: TEMP 96.9
[2025-02-03] MEDS ORDERED: methylPREDNISolone ACETATE 80 MG/ML 1 ML VIAL ONE (12:06)
[2025-02-03] MEDS ORDERED: IOPAMIDOL M200 10 ML VIAL ONE (12:06)
[2025-02-03 12:23] VITALS: BP 127/82; PULSE 61; RESP 14
--- NOTE | 2025-02-03 12:23 | P.PCN ---
Date of Procedure: 02/03/25 Procedure(s) Performed: PREOPERATIVE DIAGNOSIS: 1-Lumbar radiculopathy . 2-lumbar spondylosis with facet arthropathy . 3-lumbar spinal stenosis POSTOPERATIVE DIAGNOSIS: 1-lumbar radiculopathy. 2-lumbar spondylosis with facet arthropathy . 3-lumbar spinal stenosis PROCEDURE 1. Transforaminal epidural steroid injection under fluoroscopic guidance at Right L4-5 ,and Right L5-S1 level. (Fluoroscopy images stored on file in the radiology Department ) 2. Lumbar epidurogram . ANESTHESIA: Local with 1% lidocaine 3 ml. EBL: Minimal PROCEDURE INDICATION: The patient with low back pain and radiculopathy symptoms unresponsive to conservative treatment. PROCEDURE DESCRIPTION / TECHNIQUE: The patient was seen and identified in the preoperative area. Risks, benefits, complications, and alternatives were discussed with the patient. The patient agreed to proceed with the procedure and signed the consent, and vital signs were stable. Patient was taken to the OR and time out was completed. The patient was placed in the prone position on procedure table and a pillow was placed under the abdomen to reduce lumbar lordosis. The lumbosacral area was prepped and draped in the usual sterile fashion. Critical pause was taken. Vital signs were closely monitored during the procedure. Using oblique fluoroscopy, the chin of the `[place] dog at right L5-S1 level was identified, and the skin and deeper tissues just below was localized with 1% lidocaine. Subsequently, a 23-gauge 3.5 -inch spinal needle was advanced under a tunneled view fluoroscopic guidance just underneath the chin of the `[place] dog at the Right L5-S1 Under lateral fluoroscopy, the needle was then advanced to the posterior border of the interforaminal space. After negative aspiration of CSF and blood and with no paresthesias, 1 mL Isovue 200 contrast dye was injected excellent epidurogram and outlining of the nerve root Subsequently, 2 mL of block solution containing 40 mg Depo-Medrol and 2 mL of 0.9% normal saline PF was injected. Needle was removed ,and the exact same procedure was repeated for Right L4-5 level . At the end of the procedure, skin was cleansed, and bandages were applied. COMPLICATIONS:none DISPOSITION / PLANS: The patient was placed in a supine position and transferred to the recovery area in a stable condition for observation. There was no evidence of lower extremity motor or sensory deficit after the procedure. Patient was discharged from the recovery room after meeting discharge criteria. Home discharge instructions were given to the patient by the staff. The patient was reexamined prior to discharge.
--- NOTE | 2025-02-03 12:26 | FL ---
EXAMINATION TYPE: FL guided pain mgmt statistic DATE OF EXAM: 02/03/2025 CLINICAL INDICATION: Male, 59 years old with history of M54.16 TRANSFORAMINAL; PHH, pain TECHNIQUE: Fluoroscopy. COMPARISON: None. FINDINGS: Fluoroscopic guidance was provided during pain relief procedure performed by Dr. Calderon . A total of 7.2 seconds of fluoroscopic time was utilized during the procedure and one image was ac quired. Image acquired shows needle localization at several levels in the lower lumbar spine. Degene ration changes of the visualized joints. Total DAP: 0.60524 mGym2. IMPRESSION: As Above. [facility], , 02/03/2025 12:24 PM
== END 2025-02-03 12:50 | disposition home or self-care (01) ==
LOC: ORPAIN 10:33
PROVIDERS: ATTEND Specialist
DX: M47.26 Other spondylosis with radiculopathy, lumbar region (principal); M48.061 Spinal stenosis, lumbar region without neurogenic claudication
CPT/HCPCS: 64483; 64484; Q9966; J1010

== ENCOUNTER → 2025-02-26 | Outpatient (CLI) | payer OTHER ==
[2025-02-26 09:27] VITALS: BP 110/74; PULSE 58; RESP 17; TEMP 96.9
--- NOTE | 2025-02-26 15:18 | P.PAINPG ---
PQRS Measure Charge Sheet Comment: A 59 yr old male with a history of severe and chronic LBP secondary to radiculopathy, spondylosis with facet arthropathy without myelopathy presents today for evaluation s/p R TFESI L4-L5, L5-S1 #1. Pt states he experienced 60 % pain relief x 2 wks s/p procedure. Pt states pain level is provoked at 4-6 /10 in intensity, intermittent, localized in the lower lumbar spine, predominantly axial, dull in character w occasional shooting pain towards the R side of back. Pain is provoked by over activity. Pain is alleviated by PT x 5 wks in Nov 2022, chiropractic treatments semi monthly x 4 mo which ended in May 2024, physician guided stretches daily since May 2024, heat & ice, medications, topical, repositioning and sitting all with minimal relief. Interventional procedures include REBEL L1-L2 x2, BL SI x1, BL TFESI L4-L5 x2 (May 2024), BL RFA L3-L5 x2 (February 2024, Oct 2024), REBEL L2-L3 x1 (Jul 2024), REBEL L5-S1 x1 (Aug 2024), R TFESI L4-L5, L5-S1 x1 (02/20) Patient is currently on Ibu, Tyl, Tramadol, CBD Oil Patient denies any side effects of the medication(s), denies excessive drowsiness or sleepiness, denies suicidal ideation and reports that the current pain medication is helping to control the pain and improve activities of daily living. Patient denies any motor or sensory deficits. Patient denies any fever or night sweats, denies any change in the bowel movements or urination. Physical Examination: -Constitutional: Cooperative. Not in acute distress . - Neurologic: Cranial nerve II to XII intact. No focal neurological deficits. - Psychatric: Alert & oriented x 3. Matching mood & appropriate affect. Judgment and insight intact. - Musculoskeletal: Cervical spine: Muscle bulk/ tone/ strength in the bilateral upper extremities normal Vertebral body tenderness to palpation over Spurling test positive Distraction test positive Facet loading test positive TTP Thoracic spine Muscle bulk / tone/ strength in the bilateral paraspinal muscles normal Vertebral body tender to palpation over Facet loading test positive TTP Lumbar spine: Motor bulk/ tone/ strength lower extremities , thigh and legs : 5/5 Deep tendon reflexes : Normal Knee Jerk. Normal Ankle Jerk . Vertebral body tenderness to palpation over L5 Maciel Test positive R L4- L5, L5-S1 Lumbar Facet Loading Test positive BL L4-L5, L5-S1 Straight Leg Raise: positive at 30 degrees right side/ left side Gaenslen's Test positive Sacral spine : Severe tenderness over the Sacroiliac joint: right side / left side Range of motion: Flexion of the lumbar spine <60 degrees Range of motion: Extension of the lumbar spine <20 degrees Gaenslen's Test positive right side > left side Marcelina test: positive right side > left side Thigh Thrust Test positive right side / left side Sacral Thrust Test positive right side > left side Imaging: MRI non contrast of BL hips from 06/28/22 reviewed MRI non contrast of lumbar spine from 07/21/24 reviewed Assessment and plan: Chronic LBP secondary to lumbar radiculopathy, spondylosis with facet arthropathy without myelopathy, L Sacroiliitis Recommendation of R TFESI L4-L5, L5-S1 #2. Risks, benefits of procedure discussed and pt verbalized understanding. Protocol for discontinuation/ continuation of medications brianne procedure discussed. Minimal anesthesia including Fentanyl and Versed if clinically indicated. Pt acknowledged understanding. Attempts made to urge pt to follow up w Dr Swapna Vergara to explore additional treatment options. All questions answered. I have spent less than 30 minutes on patient care today. Dr Calderon was available by phone for the evaluation of this patient. The time was used to review the medical records including relevant urine studies and Prescription history (MAPs), review of the available imaging, evaluation and examination of the patient, coordination of care with the medical staff and if applicable referring physicians, as well as creation of the medical record PQRS Narrative: Smoking Status Never smoker Hx Alcohol Use (MH) No Home Medications: Ambulatory Orders Multivitamin [Men's Multi-Vitamin] 1 tab PO QAM 01/17/16 Ibuprofen [Motrin] 800 mg PO DAILY PRN 02/04/16 Bisoprolol [Zebeta] 5 mg PO QAM 11/23/23 Celecoxib [CeleBREX] 200 mg PO BID 11/23/23 Losartan [Cozaar] 12.5 mg PO QAM 11/23/23 Rosuvastatin [Crestor] 10 mg PO QAM 11/23/23 traZODone HCL 250 mg PO HS 11/23/23 Folic Acid 1 mg PO DAILY 03/14/24 Tamsulosin [Flomax] 0.4 mg PO DAILY 03/14/24 Aspirin 81 mg PO DAILY 06/25/24 HYDROcodone/APAP 7.5-325MG [[place] 7.5-325] 1 tab PO Q4H PRN 3 Days #18 tab 07/17/24 Controlled Substance Measures - Controlled Substance Measures Is patient prescribed a controlled substance at discharge?: No
== END ==
LOC: PNWHC3 09:00
PROVIDERS: ATTEND Specialist
DX: M47.26 Other spondylosis with radiculopathy, lumbar region (principal); G89.29 Other chronic pain; Z88.8 Allergy status to other drugs, medicaments and biological substances
CPT/HCPCS: 99211

== ENCOUNTER 2025-03-13 10:00 | Day surgery (SDC) | payer OTHER ==
[2025-03-13 10:31] VITALS: TEMP 98.5
[2025-03-13] MEDS ORDERED: DEXAMETHASONE SOD PHOSPHATE 10 MG/ML 1 ML VIAL ONE (10:54)
[2025-03-13] MEDS ORDERED: IOPAMIDOL M200 10 ML VIAL ONE (10:54)
--- NOTE | 2025-03-13 11:12 | P.PCN ---
Date of Procedure: 03/13/25 Description of Procedure: PROCEDURE: 1) right sided L4-L5, and L5-S1 transforaminal epidural steroid injection under fluoroscopic guidance, 2) Epidurogram SURGEON: Alejandra Tran COMPENSATION ADVISOR: None ANESTHESIA: Local , and IV sedation: None EBL: None. 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 Came here for repeat procedure. PROCEDURE DESCRIPTION: The patient was seen and identified in the preoperative area. Risks, benefits, complications, and alternatives were discussed with the patient. The patient agreed to proceed with the procedure and signed the consent. IV was started, and vital signs were stable. Patient was taken to the OR and time out was completed. The patient was placed in the prone position on procedure table and a pillow was placed under the abdomen to reduce lumbar lordosis. The lumbosacral area was prepped with ChloraPrep 1 and draped in the usual sterile fashion. Critical pause was taken. Vital signs were closely monitored during the procedure. Using 20 degree ipsilateral oblique fluoroscopy, the chin of the Eliazar dog of L4, and L5 was identified, and the skin and deeper tissues just below was localized with 2.5 mL of 1% lidocaine. 22-guage 5-inch spinal needles were used for the procedure. The needle was guided by fluoroscopy just underneath the chin of the Eliazar dog of L4 . Under AP fluoroscopy, the needle was advanced to the 6 o'clock position of the L4 pedicle. After negative aspiration of CSF and blood and with no paresthesias, 1 mL of Isovue-200 contrast dye was injected with good anterior epidural spread and outlining of the L4 nerve root. After negative aspiration 3 mL of block solution injected . Block solution contained 10 mg of dexamethasone, free with 2 mL of normal saline preservative-free. Entire procedure repeated at L5 level. Dexamethasone 10 Mg +10 Mg= 20 mg used for the procedure Needle was removed intact, skin was cleansed, and bandage was applied. COMPLICATIONS: None. DISPOSITION : The patient was placed in a supine position and transferred to the recovery area in a stable condition for observation and was discharged from the recovery room after meeting discharge criteria. Home discharge instructions given to the patient by the staff. The patient was reexamined prior to discharge. The patient will schedule follow-up in the clinic in 4 weeks' duration
[2025-03-13 11:17] VITALS: RESP 15
[2025-03-13 11:29] VITALS: BP 127/80; PULSE 63
--- NOTE | 2025-03-13 15:23 | FL ---
EXAMINATION TYPE: FL guided pain mgmt statistic DATE OF EXAM: 03/13/2025 FLUOROSCOPY R TRANSFORAMINAL 2 LEVELS, 9SEC FL TIME, [id number] images are submitted. [facility], , 03/13/2025 3:21 PM
== END 2025-03-13 11:31 | disposition home or self-care (01) ==
LOC: ORPAIN 10:00
DX: M51.16 Intervertebral disc disorders with radiculopathy, lumbar region (principal)
CPT/HCPCS: 64483; 64484; J1100; Q9966

== ENCOUNTER → 2025-04-08 | Outpatient (CLI) | payer OTHER ==
--- NOTE | 2025-04-08 13:12 | XR ---
EXAMINATION TYPE: XR shoulder complete RT DATE OF EXAM: 04/08/2025 1:08 PM COMPARISON: None CLINICAL INDICATION: Male, 59 years old with history of [id number] PAIN IN RIGHT SHOULDER; PHH, pain TECHNIQUE: XR shoulder complete RT; examined in AP, internally rotated and scapular Y projections. FINDINGS: No evidence of acute osseous pathology, joint dislocation, or soft tissue swelling. The remaining po rtions of the visualized chest are unremarkable. Degeneration changes of the acromion, distal clavic le with osteophyte formation. There is osteophyte formation of the glenoid and humeral head. There is joint space narrowing of glenohumeral joint. IMPRESSION: No acute osseous pathology. [facility], , 04/08/2025 1:09 PM
== END | disposition home or self-care (01) ==
LOC: RADXRMAIN 11:51
PROVIDERS: ATTEND Family Medicine
DX: M19.011 Primary osteoarthritis, right shoulder (principal)

== ENCOUNTER → 2025-04-13 | Outpatient (CLI) | payer OTHER ==
[2025-04-13 09:10] VITALS: BP 160/71; PULSE 61; RESP 16; TEMP 97.1
--- NOTE | 2025-04-13 15:43 | P.PAINPG ---
Objective - Vital Signs Vital signs: Vital Signs Temp 97.1 F L 04/13/25 09:04 Pulse 61 04/13/25 09:04 Resp 16 04/13/25 09:04 BP 160/71 04/13/25 09:04 Pulse Ox 95 04/13/25 09:04 FiO2 Intake & Output 04/12/25 04/13/25 04/13/25 18:59 06:59 18:59 Weight 122.47 kg PQRS Measure Charge Sheet Mode of Arrival: Ambulatory Comment: A 60 yr old male with a history of severe and chronic LBP secondary to radiculo marika, spondylosis with facet arthropathy without myelopathy presents today for evaluation s/p R TFESI L4-L5, L5-S1 #2. Pt states he experienced 80 % pain relief x 1 wk s/p procedure. Pt states pain level is provoked at 6 /10 in intensity, intermittent, localized in the lower lumbar spine, predominantly axial, sharp in character w occasional shooting pain towards the RLE. Pain is provoked by over activity. Pain is alleviated by PT x 5 wks in Nov 2022, chiropractic treatments semi monthly x 4 mo which ended in May 2024, physician guided stretches daily since May 2024, heat & ice, medications, topical, repositioning and sitting all with minimal relief. Interventional procedures include REBEL L1-L2 x2, BL SI x1, BL TFESI L4-L5 x2 (May 2024), BL RFA L3-L5 x2 (February 2024, Oct 2024), REBEL L2-L3 x1 (Jul 2024), REBEL L5-S1 x1 (Aug 2024), R TFESI L4-L5, L5-S1 x2 (02/20, 03/22) Patient is currently on Ibu, Tyl, Tramadol, CBD Oil Patient denies any side effects of the medication(s), denies excessive drowsiness or sleepiness, denies suicidal ideation and reports that the current pain medication is helping to control the pain and improve activities of daily living. Patient denies any motor or sensory deficits. Patient denies any fever or night sweats, denies any change in the bowel movements or urination. Physical Examination: -Constitutional: Cooperative. Not in acute distress . - Neurologic: Cranial nerve II to XII intact. No focal neurological deficits. - Psychatric: Alert & oriented x 3. Matching mood & appropriate affect. Judgment and insight intact. - Musculoskeletal: Cervical spine: Muscle bulk/ tone/ strength in the bilateral upper extremities normal Vertebral body tenderness to palpation over Spurling test positive Distraction test positive Facet loading test positive TTP Thoracic spine Muscle bulk / tone/ strength in the bilateral paraspinal muscles normal Vertebral body tender to palpation over Facet loading test positive TTP Lumbar spine: Motor bulk/ tone/ strength lower extremities , thigh and legs : 5/5 Deep tendon reflexes : Normal Knee Jerk. Normal Ankle Jerk . Vertebral body tenderness to palpation over L5 Maciel Test positive R L4- L5, L5-S1 Lumbar Facet Loading Test positive BL L4-L5, L5-S1 Straight Leg Raise: positive at 30 degrees right side/ left side Gaenslen's Test positive Sacral spine : Severe tenderness over the Sacroiliac joint: right side / left side Range of motion: Flexion of the lumbar spine <60 degrees Range of motion: Extension of the lumbar spine <20 degrees Gaenslen's Test positive right side > left side Marcelina test: positive right side > left side Thigh Thrust Test positive right side / left side Sacral Thrust Test positive right side > left side Imaging: MRI non contrast of BL hips from 06/28/22 reviewed MRI non contrast of lumbar spine from 07/21/24 reviewed Assessment and plan: Chronic LBP secondary to stenosis, radiculopathy, spondylosis with facet arthropathy without myelopathy, L Sacroiliitis Recommendation to follow up w Dr Swapna Vergara to explore additional treatment options. All questions answered. I have spent less than 30 minutes on patient care today. Dr Calderon was available by phone for the evaluation of this patient. The time was used to review the medical records including relevant urine studies and Prescription history (MAPs), review of the available imaging, evaluation and examination of the patient, coordination of care with the medical staff and if applicable referring physicians, as well as creation of the medical record - Pain Location Bilateral Lower Back Non-Pharmacological Interventions: Heat, Ice, Inactivity, Physical Therapy, Position/Reposition, Sitting, Stretching, TENS Unit Pharmacological Interventions: Block, Epidural, PRN Medication, Scheduled Medication, Topical Medication PQRS Narrative: Smoking Status Never smoker Blood Pressure 160/71 Pain Intensity [Bilateral 6 Lower Back] Scale Used Numeric (1 - 10) Hx Alcohol Use (MH) No Home Medications: Ambulatory Orders Multivitamin [Men's Multi-Vitamin] 1 tab PO QAM 01/17/16 Ibuprofen [Motrin] 800 mg PO DAILY PRN 02/04/16 Bisoprolol [Zebeta] 5 mg PO QAM 11/23/23 Celecoxib [CeleBREX] 200 mg PO BID 11/23/23 Losartan [Cozaar] 12.5 mg PO QAM 11/23/23 Rosuvastatin [Crestor] 10 mg PO QAM 11/23/23 traZODone HCL 300 mg PO HS 11/23/23 Folic Acid 1 mg PO DAILY 03/14/24 Tamsulosin [Flomax] 0.4 mg PO DAILY 03/14/24 Aspirin 81 mg PO DAILY 06/25/24 HYDROcodone/APAP 7.5-325MG [[place] 7.5-325] 1 tab PO Q4H PRN 3 Days #18 tab 07/17/24 Controlled Substance Measures - Controlled Substance Measures Is patient prescribed a controlled substance at discharge?: No
== END ==
LOC: PNWHC3 08:59
PROVIDERS: ATTEND Specialist
DX: M47.26 Other spondylosis with radiculopathy, lumbar region (principal); M48.061 Spinal stenosis, lumbar region without neurogenic claudication; M46.1 Sacroiliitis, not elsewhere classified; Z88.8 Allergy status to other drugs, medicaments and biological substances
CPT/HCPCS: 99211

== ENCOUNTER 2025-05-04 23:38 | Emergency (ER) | payer OTHER ==
[2025-05-04 23:45] LABS: Glucose,Whole Blood 436 mg/dL (70-110)
[2025-05-05 00:32] LABS: Basophils # (A) 0.04 10*3/uL (0.00-0.10); Basophils % (A) 0.8 %; Eosinophils # (A) 0.12 10*3/uL (0.04-0.35); Eosinophils % (A) 2.3 %; HCT 40.1 % (39.6-50.0); HGB 13.5 g/dL (13.0-17.0); Lymphocytes # (A) 1.22 10*3/uL (0.90-5.00); Lymphocytes % (A) 23.1 %; MCH 28.1 pg (27.0-32.0); MCHC 33.7 g/dL (32.0-37.0); MCV 83.4 fL (80.0-97.0); Monocytes # (A) 0.42 10*3/uL (0.20-1.00); Monocytes % (A) 7.9 %; Neutrophils # (A) 3.49 10*3/uL (1.80-7.70); Neutrophils % (A) 65.9 %; Platelet Count 171 10*3/uL (140-440); RBC 4.81 10*6/uL (4.40-5.60); RDW 12.5 % (11.5-14.5); WBC 5.29 10*3/uL (4.50-10.00)
[2025-05-05 00:53] LABS: ALT 16 U/L (4-49); AST 19 U/L (17-59); African American GFR (CKD) >90 (>60 ml/min/1.73 sqM); Albumin 4.5 g/dL (3.5-5.0); Alkaline Phosphatase 99 U/L (38-126); Amylase 35 U/L (30-110); Anion Gap 15 mmol/L; Blood Urea Nitrogen 19 mg/dL (9-20); Calcium 9.6 mg/dL (8.4-10.2); Carbon Dioxide 24 mmol/L (22-30); Chloride 94 mmol/L (98-107); Glucose 435 mg/dL (74-99); Lipase 332 U/L (23-300); Magnesium 1.9 mg/dL (1.6-2.3); Non-African American GFR(CKD) 82 (>60 ml/min/1.73 sqM); Potassium 4.0 mmol/L (3.5-5.1); Sodium 133 mmol/L (137-145); Total Protein 7.0 g/dL (6.3-8.2)
--- NOTE | 2025-05-05 00:53 | ED ---
General Adult HPI - General Chief complaint: Recheck/Abnormal Lab/Rx Stated complaint: high glucose Time Seen by Provider: 05/04/25 23:47 Source: patient, RN notes reviewed Mode of arrival: ambulatory Limitations: no limitations - History of Present Illness Initial comments: 60-year-old male presents emergency department chief complaint of abnormal labs. Patient states that he received a phone call today stating he has been A1c was 11.1. Patient states that he followed up with his primary because of increased thirst and dry mouth. Patient states that this is relatively new for him. Patient states he drinks at least a gallon of water a day. No history of diabetes denies leg pain leg swelling no chest pain no shortness of breath denies being dizzy, lightheaded no nausea vomiting. - Related Data Home Medications Medication Instructions Recorded Confirmed Multivitamin [Men's Multi-Vitamin] 1 tab PO QAM 01/17/16 04/13/25 Ibuprofen [Motrin] 800 mg PO DAILY PRN 02/04/16 04/13/25 Bisoprolol [Zebeta] 5 mg PO QAM 11/23/23 04/13/25 Celecoxib [CeleBREX] 200 mg PO BID 11/23/23 04/13/25 Losartan [Cozaar] 12.5 mg PO QAM 11/23/23 04/13/25 Rosuvastatin [Crestor] 10 mg PO QAM 11/23/23 04/13/25 traZODone HCL 300 mg PO HS 11/23/23 04/13/25 Folic Acid 1 mg PO DAILY 03/14/24 04/13/25 Tamsulosin [Flomax] 0.4 mg PO DAILY 03/14/24 04/13/25 Aspirin 81 mg PO DAILY 06/25/24 04/13/25 Previous Rx's Medication Instructions Recorded HYDROcodone/APAP 7.5-325MG [[place] 1 tab PO Q4H PRN 3 Days #18 tab 07/17/24 7.5-325] metFORMIN HCL 500 mg PO BID #60 tab 05/05/25 Allergies Allergy/AdvReac Type Severity Reaction Status Date / Time bupropion Allergy Swelling Verified 05/04/25 23:45 Review of Systems ROS Statement: Those systems with pertinent positive or pertinent negative responses have been documented in the HPI. ROS Other: All systems not noted in ROS Statement are negative. Past Medical History Past Medical History: Eye Disorder, Hyperlipidemia, Hypertension, Osteoarthritis (OA), Prostate Disorder Additional Past Medical History / Comment(s): ABDOMINAL/BACK PAIN FOR ABOUT A MONTH, lazy eye on left, RT SHOULDER PAIN History of Any Multi-Drug Resistant Organisms: None Reported Past Surgical History: Heart Catheterization, Joint Replacement, Orthopedic Surgery Additional Past Surgical History / Comment(s): LEFT bunionectomy, RIGHT INDEX finger, EXPLORATORY LAPAROTOMY -ABDOMEN , WISDOM TEETH EXTRACTIONS , PAIN CLINIC PROCEDURE, COLONOSCOPY, RT TKA, COLONOSCOPY Past Anesthesia/Blood Transfusion Reactions: No Reported Reaction Past Psychological History: Depression Smoking Status: Never smoker Past Alcohol Use History: Rare Past Drug Use History: None Reported - Past Family History Father Family Medical History: Cancer General Exam Limitations: no limitations General appearance: alert, in no apparent distress Head exam: Present: atraumatic, normocephalic, normal inspection Eye exam: Present: normal appearance, PERRL, EOMI. Absent: scleral icterus, conjunctival injection, periorbital swelling Neck exam: Present: normal inspection, full ROM. Absent: tenderness, meningismu s, lymphadenopathy Respiratory exam: Present: normal lung sounds bilaterally. Absent: respiratory distress, wheezes, rales, rhonchi, stridor Cardiovascular Exam: Present: regular rate, normal rhythm, normal heart sounds. Absent: systolic murmur, diastolic murmur, rubs, gallop, clicks GI/Abdominal exam: Present: soft, normal bowel sounds. Absent: distended, tenderness, guarding, rebound, rigid Neurological exam: Present: alert, oriented X3 Course Vital Signs 05/04/25 05/05/25 05/05/25 23:41 01:28 02:09 Temperature 98 F 97.7 F 97.6 F Pulse Rate 70 66 62 Respiratory 18 17 19 Rate Blood Pressure 128/88 127/73 118/73 O2 Sat by Pulse 98 97 95 Oximetry Medical Decision Making - Medical Decision Making Was pt. sent in by a medical professional or institution (, PA, UNISAW OPERATOR, urgent care, hospital, or senior care...) When possible be specific @ -pcp Did you speak to anyone other than the patient for history (EMS, parent, family, police, friend...)? What history was obtained from this source @ -No Did you review nursing and triage notes (agree or disagree)? Why? @ -I reviewed and agree with nursing and triage notes Were old charts reviewed (outside hosp., previous admission, EMS record, old EKG, old radiological studies, urgent care reports/EKG's, senior care records)? Report findings @ -No old charts were reviewed Differential Diagnosis (chest pain, altered mental status, abdominal pain women, abdominal pain men, vaginal bleeding, weakness, fever, dyspnea, syncope, headache, dizziness, GI bleed, back pain, seizure, CVA, palpatations, mental health, musculoskeletal)? @ -New onset diabetes, HHS, DKA, hyperglycemia, dehydration EKG interpreted by me (3pts min.). @ -None X-rays interpreted by me (1pt min.). @ -None done CT interpreted by me (1pt min.). @ -None done U/S interpreted by me (1pt. min.). @ -None done What testing was considered but not performed or refused? (CT, X-rays, U/S, labs)? Why? @ -None What meds were considered but not given or refused? Why? @ -None Did you discuss the management of the patient with other professionals (thiago eddy i.eCaprice Cruz, PA, UNISAW OPERATOR, lab, RT, psych nurse, health care social worker, software firmware engineer, teacher, correction officer reformatory, child support case officer)? Give summary @ -No Was smoking cessation discussed for >3mins.? @ -No Was critical care preformed (if so, how long)? @ -No Were there social determinants of health that impacted care today? How? (Homelessness, low income, unemployed, alcoholism, drug addiction, transportation, low edu. Level, literacy, decrease access to med. care, nursing home, rehab)? @ -No Was there de-escalation of care discussed even if they declined (Discuss DNR or withdrawal of care, Hospice)? DNR status @ -No What co-morbidities impacted this encounter? (DM, HTN, Smoking, COPD, CAD, Cancer, CVA, ARF, Chemo, Hep., AIDS, mental health diagnosis, sleep apnea, morbid obesity)? @ -None Was patient admitted / discharged? Hospital course, mention meds given and route, prescriptions, significant lab abnormalities, going to OR and other pertinent info. @ -Discharge patient presented for possible new onset diabetes. Patient glucose was over 400. Patient has tested negative, patient has no significant acidosis, venous blood gas within normal limits. Patient was given 2 L of fluids, insulin. Patient was discharged on metformin which her parents are discussed. Undiagnosed new problem with uncertain prognosis? @ -No Drug Therapy requiring intensive monitoring for toxicity (Heparin, Nitro, Insulin, Cardizem)? @ -No Were any procedures done? @ -No Diagnosis/symptom? @ -New onset diabetes Acute, or Chronic, or Acute on Chronic? @ -Acute Uncomplicated (without systemic symptoms) or Complicated (systemic symptoms)? @ -Complicated Side effects of treatment? @ -No Exacerbation, Progression, or Severe Exacerbation? @ -No Poses a threat to life or bodily function? How? (Chest pain, [place], [place], pneumonia, PE, COPD, DKA, ARF, appy, cholecystitis, CVA, Diverticulitis, Homicidal, Suicidal, threat to staff... and all critical care pts) @ -No - Lab Data Result diagrams: 05/04/25 23:57 05/04/25 23:57 Lab Results 05/04/25 05/04/25 05/04/25 Range/Units 23:44 23:57 23:57 WBC 5.29 (4.50-10.00) 10*3/uL RBC 4.81 (4.40-5.60) 10*6/uL Hgb 13.5 (13.0-17.0) g/dL Hct 40.1 (39.6-50.0) % MCV 83.4 (80.0-97.0) fL MCH 28.1 (27.0-32.0) pg MCHC 33.7 (32.0-37.0) g/dL Plt Count 171 (140-440) 10*3/uL MPV 10.9 (9.5-12.2) fL Immature Gran % (Auto) 0 % Neutrophils % 65.9 % Lymphocytes % 23.1 % Monocytes % 7.9 % Eosinophils % 2.3 % Basophils % 0.8 % Immature Gran # 0.00 (0.00-0.04) 10*3/uL Neutrophils # 3.49 (1.80-7.70) 10*3/uL Lymphocytes # 1.22 (0.90-5.00) 10*3/uL Monocytes # 0.42 (0.20-1.00) 10*3/uL Eosinophils # 0.12 (0.04-0.35) 10*3/uL Basophils # 0.04 (0.00-0.10) 10*3/uL VBG pH (7.31-7.41) VBG pCO2 (37-51) mmHg VBG HCO3 (24-28) mmol/L Sodium 133 L (137-145) mmol/L Potassium 4.0 (3.5-5.1) mmol/L Chloride 94 L (98-107) mmol/L Carbon Dioxide 24 (22-30) mmol/L Anion Gap 15 mmol/L BUN 19 (9-20) mg/dL Creatinine 0.99 (0.66-1.25) mg/dL Est GFR (CKD-EPI)AfAm >90 (>60 ml/min/1.73 sqM) Est GFR (CKD-EPI)NonAf 82 (>60 ml/min/1.73 sqM) Glucose 435 H (74-99) mg/dL POC Glucose (mg/dL) 436 H (70-110) mg/dL POC Glu Streetcar Conductor ID Achatz Lizbeth Plasma Lactic Acid Tank (0.7-2.0) mmol/L Calcium 9.6 (8.4-10.2) mg/dL Magnesium 1.9 (1.6-2.3) mg/dL Total Bilirubin 1.0 (0.2-1.3) mg/dL AST 19 (17-59) U/L ALT 16 (4-49) U/L Alkaline Phosphatase 99 (38-126) U/L Total Protein 7.0 (6.3-8.2) g/dL Albumin 4.5 (3.5-5.0) g/dL Amylase 35 (30-110) U/L Lipase 332 H (23-300) U/L Urine Color Urine Appearance (Clear) Urine pH (5.0-8.0) Ur Specific [place] (1.001-1.035) Urine Protein (Negative) Urine Glucose (UA) (Negative) Urine Ketones (Negative) Urine Blood (Negative) Urine Nitrite (Negative) Urine Bilirubin (Negative) Urine Urobilinogen (<2.0) mg/dL Ur Leukocyte Esterase (Negative) Acetone, Qual Negative (Negative) 05/04/25 05/05/25 05/05/25 Range/Units 23:57 01:23 01:27 WBC (4.50-10.00) 10*3/uL RBC (4.40-5.60) 10*6/uL Hgb (13.0-17.0) g/dL Hct (39.6-50.0) % MCV (80.0-97.0) fL MCH (27.0-32.0) pg MCHC (32.0-37.0) g/dL Plt Count (140-440) 10*3/uL MPV (9.5-12.2) fL Immature Gran % (Auto) % Neutrophils % % Lymphocytes % % Monocytes % % Eosinophils % % Basophils % % Immature Gran # (0.00-0.04) 10*3/uL Neutrophils # (1.80-7.70) 10*3/uL Lymphocytes # (0.90-5.00) 10*3/uL Monocytes # (0.20-1.00) 10*3/uL Eosinophils # (0.04-0.35) 10*3/uL Basophils # (0.00-0.10) 10*3/uL VBG pH 7.38 (7.31-7.41) VBG pCO2 48 (37-51) mmHg VBG HCO3 28 (24-28) mmol/L Sodium (137-145) mmol/L Potassium (3.5-5.1) mmol/L Chloride (98-107) mmol/L Carbon Dioxide (22-30) mmol/L Anion Gap mmol/L BUN (9-20) mg/dL Creatinine (0.66-1.25) mg/dL Est GFR (CKD-EPI)AfAm (>60 ml/min/1.73 sqM) Est GFR (CKD-EPI)NonAf (>60 ml/min/1.73 sqM) Glucose (74-99) mg/dL POC Glucose (mg/dL) (70-110) mg/dL POC Glu Streetcar Conductor ID Plasma Lactic Acid Tank 1.0 (0.7-2.0) mmol/L Calcium (8.4-10.2) mg/dL Magnesium (1.6-2.3) mg/dL Total Bilirubin (0.2-1.3) mg/dL AST (17-59) U/L ALT (4-49) U/L Alkaline Phosphatase (38-126) U/L Total Protein (6.3-8.2) g/dL Albumin (3.5-5.0) g/dL Amylase (30-110) U/L Lipase (23-300) U/L Urine Color Colorless Urine Appearance Clear (Clear) Urine pH 5.0 (5.0-8.0) Ur Specific [place] 1.039 H (1.001-1.035) Urine Protein Negative (Negative) Urine Glucose (UA) 4+ H (Negative) Urine Ketones 1+ H (Negative) Urine Blood Negative (Negative) Urine Nitrite Negative (Negative) Urine Bilirubin Negative (Negative) Urine Urobilinogen <2.0 (<2.0) mg/dL Ur Leukocyte Esterase Negative (Negative) Acetone, Qual (Negative) 05/05/25 Range/Units 02:13 WBC (4.50-10.00) 10*3/uL RBC (4.40-5.60) 10*6/uL Hgb (13.0-17.0) g/dL Hct (39.6-50.0) % MCV (80.0-97.0) fL MCH (27.0-32.0) pg MCHC (32.0-37.0) g/dL Plt Count (140-440) 10*3/uL MPV (9.5-12.2) fL Immature Gran % (Auto) % Neutrophils % % Lymphocytes % % Monocytes % % Eosinophils % % Basophils % % Immature Gran # (0.00-0.04) 10*3/uL Neutrophils # (1.80-7.70) 10*3/uL Lymphocytes # (0.90-5.00) 10*3/uL Monocytes # (0.20-1.00) 10*3/uL Eosinophils # (0.04-0.35) 10*3/uL Basophils # (0.00-0.10) 10*3/uL VBG pH (7.31-7.41) VBG pCO2 (37-51) mmHg VBG HCO3 (24-28) mmol/L Sodium (137-145) mmol/L Potassium (3.5-5.1) mmol/L Chloride (98-107) mmol/L Carbon Dioxide (22-30) mmol/L Anion Gap mmol/L BUN (9-20) mg/dL Creatinine (0.66-1.25) mg/dL Est GFR (CKD-EPI)AfAm (>60 ml/min/1.73 sqM) Est GFR (CKD-EPI)NonAf (>60 ml/min/1.73 sqM) Glucose (74-99) mg/dL POC Glucose (mg/dL) 254 H (70-110) mg/dL POC Glu Streetcar Conductor ID Chilo Recio Plasma Lactic Acid Tank (0.7-2.0) mmol/L Calcium (8.4-10.2) mg/dL Magnesium (1.6-2.3) mg/dL Total Bilirubin (0.2-1.3) mg/dL AST (17-59) U/L ALT (4-49) U/L Alkaline Phosphatase (38-126) U/L Total Protein (6.3-8.2) g/dL Albumin (3.5-5.0) g/dL Amylase (30-110) U/L Lipase (23-300) U/L Urine Color Urine Appearance (Clear) Urine pH (5.0-8.0) Ur Specific [place] (1.001-1.035) Urine Protein (Negative) Urine Glucose (UA) (Negative) Urine Ketones (Negative) Urine Blood (Negative) Urine Nitrite (Negative) Urine Bilirubin (Negative) Urine Urobilinogen (<2.0) mg/dL Ur Leukocyte Esterase (Negative) Acetone, Qual (Negative) Disposition Clinical Impression: Diabetes mellitus, new onset, Hyperglycemia Disposition: HOME SELF-CARE Condition: Stable Instructions (If sedation given, give patient instructions): Type 2 Diabetes in Adults: New Diagnosis (DC) Additional Instructions: Please return to the Emergency Department if symptoms worsen or any other concerns. Prescriptions: metFORMIN HCL 500 mg PO BID #60 tab Is patient prescribed a controlled substance at d/c from ED?: No Referrals: None,Stated [Primary Care Provider] - 1-2 days Time of Disposition: 02:47
[2025-05-05] MEDS: SODIUM CHLORIDE 0.9% 1,000 ML IV SCH (01:24)
[2025-05-05] MEDS: INSULIN REGULAR 100 UNIT/ML VIAL (IV) IV ONE (01:37)
[2025-05-05 01:43] LABS: VBG HCO3 28.0 mmol/L (24-28); VBG PCO2 48.0 mmHg (37-51); VBG PH 7.38 (7.31-7.41)
[2025-05-05 02:15] LABS: Glucose,Whole Blood 254 mg/dL (70-110)
[2025-05-05 02:32] LABS: Bilirubin,Urine Negative (Negative); Blood,Urine Negative (Negative); Color,Urine Colorless; Glucose,Urine (UA) 4+ (Negative); Ketones,Urine 1+ (Negative); Leukocyte Esterase,Urine Negative (Negative); Nitrite,Urine Negative (Negative); PH, Urine 5.0 (5.0-8.0); Protein,Urine Negative (Negative); Specific Gravity,Urine 1.039 (1.001-1.035); Urobilinogen,Urine <2.0 mg/dL (<2.0)
[2025-05-05 03:10] VITALS: BP 121/76; PULSE 64; RESP 17; TEMP 97.3
[2025-05-05] MEDS: metFORMIN 500 MG TAB PO STA (03:10)
== END 2025-05-05 03:18 | disposition home or self-care (01) ==
LOC: EC 23:38
DX: E11.65 Type 2 diabetes mellitus with hyperglycemia (principal); Z88.8 Allergy status to other drugs, medicaments and biological substances
CPT/HCPCS: 36415; 80053; 81003; 82009; 82150; 82803; 83605; 83690; 83735; 85025; 93005; 96360; 96361; 99284; 99285

== ENCOUNTER → 2025-05-05 | Outpatient (CLI) | payer OTHER ==
--- NOTE | 2025-05-05 10:57 | CA ---
Lexiscan Nuclear Stress Test Report Name: Felipe Chacko Exam Date: 05/05/2025 10:02 Exam Location: [place] Stress Ht (in): 75 Wt (lb): 270 BSA: 2.49 Ordering Phys: Eric Monk DO Referring Phys: Michell Naqvi Technologist: Sourav Lentz Age: 60 Gender: M : 1965 Procedure CPT: Indications: R07.9 CHEST PAIN ICD-10 Codes: Patient History: CHEST PRESSURE, HTN, DIABETIC, HYPERCHOLESTEROLEMIA, FAMILY HX OF HEART DISEASE, PRIOR HEART CATH Medications: Meds past 24 hrs: Pretest Chest Pain: STRESS TEST Lexiscan Protocol Exercise Duration (min:sec): 02:[address] Depressions (mm): Angina Score: Robison Score: Resting HR (bpm): 54 Peak HR (bpm): 76 Resting BP (mmHg): 128 / 72 Peak BP (mmHg): 128 / 72 MPHR: 160 Target HR: 136 % MPHR: 47 METS: 1.0 Total Dose: Peak Dose: Atropine: Double Product: 9728 BP Response: Stress Termination: INFUSION COMPLETE Stress Symptoms: CHEST PAIN "5" Stress Summary: ECG ANALYSIS Resting ECG: Stress ECG: CONCLUSIONS Diagnosis: Chest pain No ECG evidence for ischemia or arrhythmia Dr. Rickey Fox MD (Electronically Signed) Final Date: 05 May 2025 10:56
--- NOTE | 2025-05-05 13:38 | NM ---
EXAMINATION TYPE: NM stress lexiscan cardiolite DATE OF EXAM: 05/05/2025 COMPARISON: None. CLINICAL INDICATION: Male, 60 years old with history of R07.9 CHEST PAIN; chest pressure. History of hypertension, diabetes, hypercholesteremia TECHNIQUE: After the intravenous administration of 10.1 mCi Tc 99m Sestamibi - Cardiolite resting SP ECT images acquired 85 minutes post injection. The patient received 0.4mg Lexiscan, 25.3 mCi Tc 99m Sestamibi - Stress images obtained [address] injection FINDINGS: Review of stress and rest SPECT images demonstrates poor uptake involving the septal wall extending i nto the inferior wall suspicious for old infarct. Polar maps show second area of diminished uptake on stress images versus rest images involving the lateral wall inferiorly towards the apex in which acu te ischemia cannot be excluded. Gated analysis shows estimated left ventricular ejection fraction of 62 %. IMPRESSION: Suspect old infarct. Cannot exclude acute ischemia lateral wall extending inferiorly tow ards the apex. Need to further investigate with direct catheter angiogram should be based on clinical and EKG correlation. [facility], , 05/05/2025 1:35 PM
== END | disposition home or self-care (01) ==
LOC: RADNMMAIN 07:20
PROVIDERS: ATTEND Emergency Medicine Emergency Medical Services
DX: E78.00 Pure hypercholesterolemia, unspecified (principal); E11.9 Type 2 diabetes mellitus without complications; R07.9 Chest pain, unspecified; I10 Essential (primary) hypertension; Z82.49 Family history of ischemic heart disease and other diseases of the circulatory system
CPT/HCPCS: 93017; 78452; A9500